=== PATIENT | female | born 1975 | race Caucasian/White ===

== ENCOUNTER 2019-03-22 13:55 | Inpatient (IN) | payer OTHER, SELFPAY ==
[2019-03-19 13:21] VITALS: BMI 48.7
[2019-03-22] VITALS (12 sets, daily range): BP systolic 127–166; BP diastolic 8–98; PULSE 18–110; RESP 10–18; TEMP 36.4–37.7; O2SAT 93–104; BMI 48.5
--- NOTE | 2019-03-22 | PATH_ITS ---
[facility] Accession Number: [id number] . 01 Material submitted: . uterine adnexa - BILATERAL FALLOPIAN TUBES AND OVARIES . 01 Diagnosis: Bilateral Fallopian Tubes and Ovaries, Bilateral Salpigoophorectomy: Fragmented ovary with corpus luteum,benign epithelial inclusion cyst and features of stromal hyperplasia; Please see Comment. Contralateral ovary with features of stromal hyperplasia. Portions of bilateral fimbriated fallopian tubes. Negative for epithelial neoplasm or malignany. [facility] [place] 03/30/2019 1827 Local . 01 Comment: The fragmented ovary contains a benign corpus luteum and an epithelial inclusiuon cyst; other fragments are denuded. Though no definitive cyst correlating to the size of the lesion is seen, the features are suggestive of a benign corpus luteum cyst. Additionally, each ovary has features suggestive of stromal hyperplasia, a finding of uncertain clinical significance. There is no evidence of epithelial neoplasm or malignancy. . As part of routine qulity assurance, Drs. Lira and Diane have reviewed this case and agrees with the above diagnosis. . 01 Electronically signed: . Christiano Braun MD, PhD, Pathologist NPI- [id number] . 01 Gross description: . Received in formalin, labeled bilateral tubes + ovaries, is an intact ovary (3.0 x 2.1 x 1.4 cm), multiple fragments of ovarian tissue (5.0 x 4.3 x 1.2 cm in aggregate), and multiple apparently fimbriated and nonfimbriated fallopian tube segments (3.3 x 1.8 x 0.6 cm in aggregate). The ovary and ovarian pieces have hearn-puentes dull flat serosa and puentes-white solid parenchyma with corpus albicans and corpus luteum identified. The fallopian tube segments have dull puentes serosa and puentes unremarkable lumens. Section code: (A1) intact ovary, ambulatory service representative serial sections; (A2) ovarian fragments, ambulatory service representative; (A3) fallopian tube segments, ambulatory service representative serial sections; (A4, A5) one bisected apparent fimbria in each cassette; (A6) additional sampling of intact ovary; (A7-A10) additional sampling of cystic ovary. ([id number]) . The gross specimen was reviewed by Dr. Braun on 03/29/2019, and additional material was submitted. ([id number]) /MRV 03/29/[address] [place] [address] . 01 Microscopic: . Sections from the fragmented ovary show a focus of corpus luteum and and a benign epithelial inclusion cyst. Other fragments are denuded of epithelium; definitive cyst wall is not appreciated. Sections from the fragmented ovary and the contralateral ovary have foci of stromal condensation suggestive of stromal hyperplasia. Adjacent there are few foci of histiocytic inflammation, which have been described in association with stromal hyperplasia. Sampling of bilateral fallopian tubes are unremarkable. There is no evidence of epithelial neoplasm or malignancy. . 01 Pathologist provided ICD-10: N83.209 . 01 CPT . 193762 Performed at: 01 [facility] [address] [place] [address] Suite [facility], [place], [place] [id number] MD Oumar Caruso MD Phone: [phone]
[2019-03-22] MEDS: LACTATED RINGERS 1,000 ML 100 ML IV ×3 (14:46→22:30)
--- NOTE | 2019-03-22 14:49 | PM.PREOP ---
Pre-operative Note Interval Note History & Physical reviewed/Exam performed by Physician: Yes Changes to H&P: No
--- NOTE | 2019-03-22 15:26 | SUR.OPER ---
Lithotomy on padded OR bed, head on pillow, arms secured on padded arm boards at <90 degrees abduction. Legs secured in padded yellow fins stirrups.
[2019-03-22] MEDS: BUPIVACAINE 0.5% W/ EPI (PF) VIAL 30 ML INJ (15:32)
[2019-03-22] MEDS: CLINDAMYCIN 900 MG/50 ML PIGGYBACK 50 MG IV (17:10)
--- NOTE | 2019-03-22 20:25 | PM.OP.1 ---
Operative Date/Time/Diagnoses Date of procedure: 03/22/19 Time of procedure: 20:25 Pre-op diagnosis: ovarian cysts Post-op diagnosis: same Procedure & Clinicians Procedure: Exploratory laparotomy Lysis of adhesions Repair of colonic serosal tear Same procedure as scheduled: No Indications: This is a 43-year-old woman who was taken to the operating room by Dr. Cheng for laparoscopy and bilateral oophorectomy. She had prior abdominal surgery dense adhesions and the procedure was converted to open prior to my arrival. I was asked to assist with the lysis of adhesions. Surgeon: Nahid Escobar Substation Electrician Supervisor: Jinny Cheng Anesthesia Type: General Operative Notes Findings: The patient had already been converted from laparoscopy to open via their prior Pfannenstiel incision. The colon and small bowel was densely adherent to the pelvis by adhesions and we were unable to adequately mobilize the intestine through the present incision. The midline was opened to the level of the umbilicus. The adhesions were carefully taken down with sharp dissection and at this point we could mobilize the intestinal contents such that we could visualize the right and left pelvis. A 1 cm serosal tear was identified on the anti mesenteric border of the sigmoid colon which was repaired in 2 layer Lembert fashion using Vicryl followed by silk. Please refer to the operative note by Dr. Cheng for for the remainder of the case.
[2019-03-22] MEDS: HYDROMORPHONE 2 MG INJ 0.5 MG IV ×2 (20:50→21:06)
[2019-03-22] MEDS: LORazepam 2 MG/ML INJ 0.5 MG IV (21:00)
[2019-03-22] MEDS: fentaNYL 100 MCG/2 ML INJ 50 MCG IV (21:10)
--- NOTE | 2019-03-22 21:47 | PM.OP.1 ---
Operative Date/Time/Diagnoses Date of procedure: 03/22/19 Time of procedure: 21:48 Pre-op diagnosis: Recurring ovarian cysts Post-op diagnosis: same Procedure & Clinicians Procedure: Laparoscopy with laparotomy, lysis of adhesions, bilateral oophorectomies Same procedure as scheduled: No (Unable to perform the procedureby laparoscopy so a laparotomy was required) Indications: Recurring painful ovarian cysts status post hysterectomy Surgeon: Jinny Cheng Strategic Marketing Associate: Hanh Villalobos Anesthesia Type: General Operative Notes Findings: Severe adhesions of the omentum, small bowel, large bowel to the anterior abdominal wall. Significant adhesions around the ovaries bilaterally. Status post hysterectomy. Closure Type: primary Specimen(s): other (Bilateral ovaries in portions of fallopian tubes) Estimated Blood Loss (mL): 100 Blood products transfused: none Procedure in detail: Patient was brought to the operating room where she underwent general anesthesia. She was placed in low Yellofin stirrups and prepped and draped in the usual sterile fashion. She had pulsatile stockings in place and functional. No antibiotics were indicated. A check system was reviewed with the staff in the room prior to beginning the case. A sponge stick was placed in the vagina. The area of the umbilical incision was injected with 0.5% Marcaine with epinephrine. An incision was made with the scalp on the incision carried down the fascial layer which was incised transversely and held with 0 Vicryl suture. The perineum was entered bluntly and the Hayley cannula was placed in the abdomen and the abdomen insufflated with CO2. A 5 mm trocar was placed in the left lower quadrant. Attempt at removing the adhesions with PlasmaKinetic scissors to allow visualization of the pelvis was unsuccessful. Decision was made to open the abdomen. A Pritchard catheter was placed. Patient received 900 mg of clindamycin IV. The area of the prior section was incised with a scalpel and the incision carried down to the fascial layer which was incised transversely. Careful entry into the perineum was performed. Extensive lysis of adhesions were performed. We continued to have significant difficulty so General surgery was consulted. Dr. Escobar assisted and decision was made to extend the incision cephalad. The incision was made in the skin above the umbilicus and extended down to the fascial layer. The fascia was incised. Further extensive lysis of adhesions was performed. An area of superficial tearing of the bowel serosa was repaired by Dr. Escobar. Eventually dissection revealed the right ovary. The area of the presumed infundibulopelvic ligament was clamped cut and ligated with 0 Vicryl suture. Dissection of the bowel away from the ovary and dissection over the ovary away from the broad ligament allowed eventual removal of the right ovary. Portion of the right tube was also removed. Next the left ovary was dissected away from the bowel and broad ligament allowing removal of the left ovary and partial fallopian tube were removed. There did not appear to be active bleeding. The abdomen was irrigated copiously with warm saline. The fascia of the Pfannenstiel incision was closed with 0 Vicryl suture starting and eight's corner and working toward the midline. 0 Maxon was used to close the vertical incision in the fascia. The subcuticular area was closed with multiple layers of 3 0 Vicryl suture. Skin was closed with barry. The umbilical fascial defect from the Painter cannula was repaired with 0 Vicryl suture and the skin was closed with 4 0 Monocryl. The left lower quadrant incision for the 5 mm trocar was closed with barry. Patient went to the recovery room in stable condition. Counts of instruments and sponges were correct. Complications: other (Need for laparotomy unable to perform by laparoscopy) Post-operative Condition: stable Disposition: Acute Care Plan for aftercare: Routine post laparotomy
--- NOTE | 2019-03-22 21:55 | SUR.PHASEI ---
Pacu to room 228. Update to YOGESH Roberts. CPAP with 2L 02 bled into mask. VSS, UOP 235, at BS during recovery. Transferred in stable condition.
[2019-03-22] MEDS: ONDANSETRON 4 MG/2 ML INJ IV (23:03)
[2019-03-22] MEDS: HYDROMORPHONE 2 MG INJ IV (23:29)
[2019-03-23] VITALS (13 sets, daily range): BP systolic 115–139; BP diastolic 59–90; PULSE 81–114; RESP 16–18; TEMP 36.4–37.7; O2SAT 96–100
[2019-03-23] MEDS: HYDROMORPHONE 2 MG INJ IV ×2 (01:11→04:58)
[2019-03-23] MEDS: ONDANSETRON 4 MG/2 ML INJ IV (05:04)
[2019-03-23 05:26] LABS: Add Manual Diff / Slide Review NO; Basophils Absolute Auto 0 /uL (0-100); Basophils Percent Auto 0.2 % (0-2); Eosinophils Absolute Auto 0 /uL (0-450); Hematocrit 39.6 % (36-46); Hemoglobin 12.9 g/dL (12.0-16.0); Lymphocytes Absolute Auto 1300 /uL (1100-4500); Lymphocytes Percent Auto 7.3 % (25-40); Mean Corpuscular HGB Conc 32.6 % (30-36); Mean Corpuscular Hemoglobin 29.3 PG (26-34); Mean Corpuscular Volume 89.8 fL (80-100); Monocytes Absolute Auto 1500 /uL (0-900); Monocytes Percent Auto 8.6 % (3-14); Neutrophils Absolute Auto 14900 /uL (1500-7000); Neutrophils Percent Auto 83.9 % (50-75); Platelet Count 409 X10^3/uL (150-400); Red Blood Cell Count 4.41 X10^6/uL (4.0-5.2); Red Cell Distribution Width 14.1 % (11.6-14.8); White Blood Cell Count 17.8 X10^3/uL (4.5-11.0)
[2019-03-23] MEDS: METOCLOPRAMIDE 10 MG/2 ML INJ IV ×2 (08:22→14:57)
[2019-03-23] MEDS: LACTATED RINGERS 1,000 ML 100 ML IV (08:22)
[2019-03-23] MEDS: ONDANSETRON 8 MG in SODIUM CHLORIDE 0.9% 50 ML 216 ML IV (10:09)
[2019-03-23] MEDS: fentaNYL 100 MCG/2 ML INJ 50 MCG IV ×3 (10:09→23:48)
--- NOTE | 2019-03-23 13:07 | PM.PNPO.1 ---
Subjective Subjective Date Patient Seen: 03/23/19 Time Patient Seen: 13:07 Interval history: Patient is postoperative day 1 laparotomy with extensive lysis of adhesions and BSO. She had a lot more nausea this morning but is improved with changing to higher doses Zofran and Reglan. She still is having some mild nausea. Patient continues to be in pain we changed her pain medicine and hopefully will have some improvement. Exam Vital Signs (past 8 hours): - 03/23/19 06:03 03/23/19 08:00 03/23/19 10:07 Temperature 99.1 F 98.4 F Pulse Rate 107 H 94 H Respiratory Rate 18 18 Blood Pressure 138/90 124/66 Pulse Oximetry 96 97 96 Oxygen Delivery Method Nasal Cannula Oxygen Flow Rate 2 Narrative Exam Narrative: Patient's abdomen is soft with minimal distention. Her dressing is dry. Extremities without edema and nontender. Objective Labs Result Diagrams: 03/23/19 04:50 Labs: Laboratory Results - last 24 hr 03/23/19 04:50 WBC 17.8 H RBC 4.41 Hgb 12.9 Hct 39.6 MCV 89.8 MCH 29.3 MCHC 32.6 RDW 14.1 Plt Count 409 H Neut % (Auto) 83.9 H Lymph % (Auto) 7.3 L [place] % (Auto) 8.6 Eos % (Auto) 0.0 L Baso % (Auto) 0.2 Neut # (Auto) 34484 H Lymph # (Auto) 1300 [place] # (Auto) 1500 H Eos # (Auto) 0 Baso # (Auto) 0 Assessment & Plan Post-op Assessment and plan (1) S/P BSO (bilateral salpingo-oophorectomy): Postoperative Procedures: Procedures Operation Date: 03/22/19 15:30 Actual Procedures Side Surgeon p Laparoscopic Salpingoophorectomy/converted to open Bilateral Jinny Cheng MD Postoperative day: 1 Postoperative status: marginal pain control Postoperative status narrative: Hopefully we can get patient up into a chair later today Postoperative plan: routine post-op care Time Spent With Patient Time with patient: less than 15 minutes Quality VTE Deep Vein Thrombosis/Pulmonary Embolism Present on Admission: No
[2019-03-23] MEDS: DEXTROSE 5%-LACTATED RINGERS 1,000 ML 100 ML IV (15:00)
[2019-03-23] MEDS: LITHIUM 300 MG ER TABLET 600 MG PO ×2 (15:49→21:51)
--- NOTE | 2019-03-23 15:51 | PC.NURSE ---
Post-op/GI: SI might be a little better now. Emesis 250mls, retching. Order received for reglan and given. Still feeling nausea, md made aware and increased zofran and that was given. Pt thinks the dilaudid may be causing her n/v and md made aware and order received for fentynal. Pt reports the fentynal is working better for her. Finally this afternoon she is taking sips of clear liquids. Has not taken her meds today and Dr. Cheng was made aware. Pt reports she is to sick to her stomach to get out of bed, has been positioned as able. Has large bulky dressing on abd which is c/d. Spouse is at bedside most of day and helps her to eat. Hopefully will start to feel better. has been here twice to see pt. Cont w/poc.
--- NOTE | 2019-03-23 21:58 | PC.NURSE ---
Pt is A and O x 4, VSS, now on RA. Able to tolerate po meds and jello and juice and water. Able to sleep. Gets good relief from IVP fentanyl 50 mcg.
[2019-03-23] MEDS: ACETAMINOPHEN 325 MG TABLET 650 MG PO (22:12)
[2019-03-24] VITALS (8 sets, daily range): BP systolic 109–126; BP diastolic 52–72; PULSE 70–103; RESP 16–20; TEMP 36.8–37.6; O2SAT 95–99
[2019-03-24] MEDS: DEXTROSE 5%-LACTATED RINGERS 1,000 ML 100 ML IV (01:07)
--- NOTE | 2019-03-24 04:15 | PC.NURSE ---
Pt refusing to be turned because it causes her pain. Educated on purpose of turns and risk vs benefit, pt acknowledged.
[2019-03-24 05:26] LABS: Add Manual Diff / Slide Review NO; Basophils Absolute Auto 100 /uL (0-100); Basophils Percent Auto 0.8 % (0-2); Eosinophils Absolute Auto 0 /uL (0-450); Eosinophils Percent Auto 0.1 % (2-4); Hematocrit 32.3 % (36-46); Hemoglobin 10.6 g/dL (12.0-16.0); Lymphocytes Absolute Auto 2200 /uL (1100-4500); Lymphocytes Percent Auto 16.6 % (25-40); Mean Corpuscular HGB Conc 32.8 % (30-36); Mean Corpuscular Hemoglobin 29.6 PG (26-34); Mean Corpuscular Volume 90.1 fL (80-100); Monocytes Absolute Auto 1200 /uL (0-900); Monocytes Percent Auto 9.1 % (3-14); Neutrophils Absolute Auto 9600 /uL (1500-7000); Neutrophils Percent Auto 73.4 % (50-75); Platelet Count 331 X10^3/uL (150-400); Red Blood Cell Count 3.58 X10^6/uL (4.0-5.2); Red Cell Distribution Width 14.2 % (11.6-14.8); White Blood Cell Count 13.1 X10^3/uL (4.5-11.0)
[2019-03-24 05:39] LABS: Alanine Aminotransferase 20 IU/L (9-52); Albumin 3.3 g/dL (3.5-5.0); Albumin Globulin Ratio 1.1 (1.0-2.8); Alkaline Phosphatase 71 U/L (38-126); Aspartate Aminotransferase 41 IU/L (14-36); Bilirubin Total 0.6 mg/dL (0.2-1.3); Blood Urea Nitrogen 7 mg/dL (7-17); Carbon Dioxide 30 mmol/L (22-32); Chloride 103 mmol/L (98-107); Estimated Glomerular Filt Rate > 60.0 mL/min (>60); Glucose 148 mg/dL (70-100); HEMOLYSIS < 15 (0-50); Sodium 138 mmol/L (137-145); Total Protein 6.3 g/dL (6.3-8.2)
[2019-03-24] MEDS: ACETAMINOPHEN 325 MG TABLET 650 MG PO ×2 (09:46→23:58)
[2019-03-24] MEDS: NADOLOL 40 MG TABLET 20 MG PO (09:47)
[2019-03-24] MEDS: lamoTRIgine 100 MG TABLET 250 MG PO (09:48)
--- NOTE | 2019-03-24 10:46 | P.PN_ITS ---
Subjective Subjective Date Patient Seen: 03/24/19 Time Patient Seen: 10:46 Interval history: Postoperative day 2. Patient is having less nausea, is able to keep pills down. She has not try to get out of bed yet. She complains of gas pains. Exam Vital Signs (past 8 hours): - 03/24/19 03:05 03/24/19 06:46 03/24/19 08:00 Temperature 99.7 F H 98.7 F 99.1 F Pulse Rate 103 H 96 H Respiratory Rate 17 18 Blood Pressure 109/52 L 126/70 Pulse Oximetry 95 98 03/24/19 09:46 Temperature 99.1 F Pulse Rate Respiratory Rate Blood Pressure Pulse Oximetry Oxygen Delivery Method Room Air,CPAP Oxygen Flow Rate 0 Narrative Exam Narrative: Patient's abdomen is soft with appropriate tenderness. Her incision is clean dry and intact with ecchymosis but no evidence of infection. Extremities with out edema and nontender Objective Labs Result Diagrams: 03/24/19 05:02 03/24/19 05:02 Labs: Laboratory Results - last 24 hr 03/24/19 03/24/19 05:02 05:02 WBC 13.1 H RBC 3.58 L Hgb 10.6 L Hct 32.3 L MCV 90.1 MCH 29.6 MCHC 32.8 RDW 14.2 Plt Count 331 Neut % (Auto) 73.4 Lymph % (Auto) 16.6 L Randall % (Auto) 9.1 Eos % (Auto) 0.1 L Baso % (Auto) 0.8 Neut # (Auto) 9600 H Lymph # (Auto) 2200 Randall # (Auto) 1200 H Eos # (Auto) 0 Baso # (Auto) 100 Sodium 138 Potassium 4.0 Chloride 103 Carbon Dioxide 30 BUN 7 Creatinine 0.50 L Estimated GFR > 60.0 BUN/Creatinine Ratio 14.0 Glucose 148 H Calcium 9.0 Total Bilirubin 0.6 AST 41 H ALT 20 Alkaline Phosphatase 71 Total Protein 6.3 Albumin 3.3 L Globulin 3.0 Albumin/Globulin Ratio 1.1 Assessment & Plan Post-op Assessment and plan (1) S/P BSO (bilateral salpingo-oophorectomy): (2) Morbid obesity with BMI of 45.0-49.9, adult: Postoperative Procedures: Procedures Operation Date: 03/22/19 15:30 Actual Procedures Side Surgeon p Laparoscopic Salpingoophorectomy/converted to open Bilateral Jinny Cheng MD Postoperative day: 2 Postoperative status: post-op ileus Postoperative plan: ambulate Postoperative plan narrative: Will start Lovenox for additional DVT protection, will see if abdominal binder will help with ambulation. Will have physical therapy consult to aid patient in ambulation. May DC IV if tolerating p.o.. Time Spent With Patient Time with patient: 15-24 minutes Quality VTE Deep Vein Thrombosis/Pulmonary Embolism Present on Admission: No
[2019-03-24] MEDS: DEXTROSE 5%-LACTATED RINGERS 1,000 ML 84 ML IV ×2 (12:04→23:43)
--- NOTE | 2019-03-24 14:35 | PC.NURSE ---
1300 Pt oob mw/assist of 2 people/walker. applied the abd binder w/o diff. Pt moves very slowly, does not want the harris cath out yet. Is agreeable when samuel to move easier. jIV fluids cont. May dc fluids when taking in adeqPO mfluids w/o n/v. Pt oconnell a poor po intake at this time. mno nausea/emesis. Encouraged increase of intake. Dr Cheng removed the ,drswhitney this AM, leave open to air. [place] intact.
--- NOTE | 2019-03-24 14:57 | CM.DANOTE ---
DCP Brief Assessment Note Patient is a 43 year old female who was admitted on 03/22/19 for Lap. Pt has [employer] for insurance and her PCP is Dr. Rebecca Castillo. EMR was reviewed. Per MD, pt was initially set for a Lap but it ended up needing to be open and pt initially on oxygen but weaned to room air. Pt continues to have some nausea and pain but has had some improvement and encouraged to get up to ambulate some to bedside chair. Per RN, pt has been hesitant to move or adjust her positioning and educated on the purpose and need for movement. PT ordered and pending. Due to triage needs and lack of current identified barriers to discharge, no bedside assessment completed at this time. Plan: SW to follow closely for pending PT eval and recommendations to determine if pt can safely d/c home and any further identified discharge planning needs. FRANKY Holbrook
[2019-03-24] MEDS: OXYCODONE IR 10 MG TABLET PO ×2 (15:42→20:46)
[2019-03-24] MEDS: ENOXAPARIN 40 MG/0.4 ML SYRINGE SUBCUT (20:45)
--- NOTE | 2019-03-24 21:13 | PC.NURSE ---
Pt denied N today, ate very little. Intensive pain when she had to have a BM which she managed, on the toilet from the chair with FWW. BM small and loose. Changed out patient's bed to Ver[place] and she states she is much more comfortable.
[2019-03-24] MEDS: LITHIUM 300 MG ER TABLET 600 MG PO (21:21)
[2019-03-25 06:01] VITALS: BP 128/69; PULSE 79; RESP 17; TEMP 36.5; O2SAT 94
[2019-03-25 08:00] VITALS: BP 129/72; PULSE 72; RESP 18; TEMP 36.5; O2SAT 96
[2019-03-25] MEDS: FLUoxetine 20 MG CAPSULE 30 MG PO (08:37)
[2019-03-25] MEDS: ACETAMINOPHEN 325 MG TABLET 650 MG PO (08:37)
[2019-03-25] MEDS: ENOXAPARIN 40 MG/0.4 ML SYRINGE SUBCUT ×2 (08:37→20:41)
[2019-03-25] MEDS: OXYCODONE IR 10 MG TABLET PO ×2 (08:38→17:52)
[2019-03-25] MEDS: LITHIUM 300 MG ER TABLET 600 MG PO ×2 (08:39→20:41)
[2019-03-25] MEDS: lamoTRIgine 100 MG TABLET 250 MG PO (08:39)
[2019-03-25] MEDS: NADOLOL 40 MG TABLET 20 MG PO (08:39)
--- NOTE | 2019-03-25 09:41 | PM.PNPO.1 ---
Subjective Subjective Date Patient Seen: 03/25/19 Time Patient Seen: 09:41 Interval history: Postoperative day 3 laparotomy with extensive lysis of adhesions and BSO. Patient is feeling better with no nausea and had a small bowel movement. She is slow but able to get out of bed. Pritchard catheter has been removed. Patient is using minimal amounts of pain medicine. She has an area in the right lower quadrant that is her major source of pain. She did have a headache but not a migraine she feels the headaches are from the pain medicine. She denies any chest pains or shortness of breath. Exam Vital Signs (past 8 hours): - 03/25/19 06:01 Temperature 97.7 F Pulse Rate 79 Respiratory Rate 17 Blood Pressure 128/69 Pulse Oximetry 94 Oxygen Delivery Method Room Air,CPAP Oxygen Flow Rate 0 Narrative Exam Narrative: Patient's abdomen is currently covered by her abdominal binder about half way over her incision. Her incision otherwise looks clean, dry, intact without evidence of infection. Her extremities are without edema and nontender. Objective Labs Result Diagrams: 03/24/19 05:02 03/24/19 05:02 Assessment & Plan Post-op Assessment and plan (1) Morbid obesity with BMI of 45.0-49.9, adult: (2) S/P BSO (bilateral salpingo-oophorectomy): Postoperative Procedures: Procedures Operation Date: 03/22/19 15:30 Actual Procedures Side Surgeon p Laparoscopic Salpingoophorectomy/converted to open Bilateral Jinny Cheng MD Postoperative day: 3 Postoperative status: doing well Postoperative plan: routine post-op care Postoperative plan narrative: Will advanced diet today and continue ambulation. Possible home tomorrow if continued to improve. Time Spent With Patient Time with patient: less than 15 minutes Quality VTE Deep Vein Thrombosis/Pulmonary Embolism Present on Admission: No
--- NOTE | 2019-03-25 10:25 | PT.IIE ---
Current Diagnoses Morbid (severe) obesity due to excess calories (03/22/19) Unspecified ovarian cyst, unspecified side (03/22/19) Pelvic and perineal pain (03/22/19) Body mass index (BMI) 45.0-49.9, adult (03/22/19) Acquired absence of ovaries, bilateral (03/22/19) Surgery Performed Operation Date: 03/22/19 15:30 Actual Procedures p Laparoscopic Salpingoophorectomy/converted to open(Bilateral) - Jinny Cheng MD Surgical History (Last Updated 03/19/19 @ 13:26 by Frida Marie, [email or web address]) H/O: hysterectomy (Acute) Medical History (Last Updated 03/19/19 @ 13:29 by Frida Marie RN) Bipolar disorder (Acute) Vertigo (Acute) Physical Therapy Inpatient Evaluation/Re-Eval M1 PT/OT-IP Prior Functional Status Start: 03/25/19 08:27 Freq: NEEDED Status: Active Protocol: Document 03/25/19 09:54 AW (Rec: 03/25/19 10:24 AW [email or web address]) Medical Review Prior Functional Status Medical History Reviewed Yes Diet/Fluid Consistency Regular Communication No known deficits. Able to make needs known. Mobility and Gait Pt has history of multiple spinal pathologies. She was mod independent for household mobility using no AD ~50% of the time and a SPC the rest of the time. She reports she would occasionally use a 4WW in the home if she was having a pain day related to her back pain. She was ambulatory for parking lot distances using her SPC. She would then use a motorized cart for grocery store distances. Activities of Daily Living and IADL's Pt received assistance from her and her 17-yo son for lower body dressing. She was otherwise independent with ADL's. Social History Household Members spouse,children Living Arrangements House Number of Floors (Floors) One Floor Number of Stairs To Enter/Railing? 5 [id number] with narrow bilateral rails which can be contacted at the same time. Home Environment High Toilet,Walk in Shower, Built-In Shower Seat Home Equipment Four Wheel Walker,Straight Cane,Hand Held Shower Additional Social History Comment Pt lives with her spouse who is an industrial electrician working at the [employer] in [place] and her children (oldest is 17 yo) . Her will take off a few days when she discharges in order to provide assistance . He is leaving for a trip within 2 weeks. At that time, pt's mother will stay with her as long as needed. M2 PT-IP Current Condition Start: 03/25/19 08:27 Freq: NEEDED Status: Active Protocol: Document 03/25/19 09:54 AW (Rec: 03/25/19 10:24 AW [email or web address]) Physical Therapy Current Condition Current Condition Evaluation Date 03/25/19 Treatment Diagnosis s/p open abdominal surgery, impaired mobility Precautions Abdominal Surgery Precautions Log Roll,Lifting Restrictions, Gait Belt above Incisional Area Brace abdominal binder Weight Bearing Status Weight Bearing Status Full Weight Bearing M3 PT-IP Subjective Start: 03/25/19 08:27 Freq: NEEDED Status: Active Protocol: Document 03/25/19 09:54 AW (Rec: 03/25/19 10:24 AW [email or web address]) Subjective Physical Therapy Visit Type Type Initial Evaluation Visit Start Time 09:08 Visit Stop Time 09:48 Total Visit Minutes [address] CUTTER Visits 0 Physical Therapy Visit Comments Patient Comments Pt recently transferred to chair, but is willing to mobilize with PT Patient Goals Pt hopes to get in and out of bed with less pain and to discharge home tomorrow with spouse/family assist Therapy Pain Assessment Pain When Pain Assessed During Mobility Pain Present Pain Present Pain Reported Location abd Intensity 3 Scale Used 3/10 RLQ pain at rest and with mobility Description Pinching,Sharp Pain Management Techniques Apply Cold,Re-positioning, Timing of Activity with Medications M4 PT-IP Mobility and Gait Start: 03/25/19 08:27 Freq: NEEDED Status: Active Protocol: Document 03/25/19 09:54 AW (Rec: 03/25/19 10:24 AW [email or web address]) PT-Bed Mobility Assessment Rolling Type of Rolling Log Rolling Level of Assist Contact Guard Assistance, Minimal Assistance Sit to Supine Sit to Supine Contact Guard Assistance Scooting Scooting Up and Down in Bed Standby Assistance PT-Transfer Assessment Sit to and From Stand Sit to and from Stand Contact Guard Assistance Equipment Transfer Assistive Device Gait Belt,Front Wheeled Walker Orthotic/Prosthetic Devices or Brace: Yes Transfers Transfer Destination Bed,Chair Transfer Technique pt ambulated with fww Transfer Ability Level of Assist Contact Guard Assistance Comments Mobility Comments Pt encountered sitting up in chair. Sit to stand transfer required CGA and cues for hand placement with FWW. She was able to stand upright and found that position more tolerable than sitting. Transfer from standing to EOB was completed CGA. Log roll into bed required CGA to min assist to elevate the legs and minimal verbal cues. Pt left in bed with bed alarm armed, table and call light within reach. Gait Assessment Gait Gait Assistance Required: Contact Guard Assist Distance (Feet) 30 Able to Maintain Weight Bearing Status Yes During Gait Assistive Devices Assistive Device Gait Belt,Front Wheeled Walker Orthotic/Prosthetic Devices or Brace: Yes Gait Deviations General Gait Pattern Antalgic,Decreased Stride Length,Decreased Feet Clearance,Wide Based Gait Factors Limiting Gait Function Factors Limiting Gait Function Decreased Activity Tolerance, Decreased Strength,Pain Comments Gait Comments Pt ambulated ~30 feet in room using wide FWW CGA. She required extra time, moved very slowly and deliberately, pausing every 10 feet for standing rest break and to stretch her abdominal wall. No respiratory distress, lightheadedness, or nausea. BP maintained 120's/70's. PT-Balance Assessment Sitting Balance and Reactions Static Sitting Balance Ability Good Dynamic Sitting Balance Ability Good Standing Balance and Reactions Static Standing Balance Ability Good Dynamic Standing Balance Ability Good Device Used FWW M5 PT-IP Objective Assessments Start: 03/25/19 08:27 Freq: NEEDED Status: Active Protocol: Document 03/25/19 09:54 AW (Rec: 03/25/19 10:24 AW [email or web address]) Orientation Orientation/Cognition Level of Alertness Alert Orientation Name,Day of Week,Place, Situation Language Function Ability No Deficits Noted Safety Awareness Understands Safety Issues Memory Description No Deficits Noted Gross Range of Motion Upper Extremity ROM Assessment Within Functional Limits Lower Extremity ROM Assessment Bilaterally Impaired Strength Upper Extremity Strength Assessment Within Functional Limits Lower Extremity Strength Assessment Right Impaired Hip 3/5 in sitting (no resistive testing) Knee 4/5 Ankle 4/5 Comments Strength Comments RLE weaker than LLE. LLE grossly 4+/5 except for hip flexion 3/5 (no resistive testing) Coordination Assessment Gross Coordination Gross Coordination WNL Sensation Assessment Sensation Gross Sensation WNL Light Touch Intact M6 PT-IP Treatment Start: 03/25/19 08:27 Freq: NEEDED Status: Active Protocol: Document 03/25/19 09:54 AW (Rec: 03/25/19 10:24 AW [email or web address]) Physical Therapy Treatment Education Education Provided Precautions,Weight Bearing Status,Post-Op Packet,Safety Other Treatments Other Treatment Performed Reviewed PT plan of care, post -op precautions, importance of early and continued mobility, and safe use of FWW. M7 PT-IP Assessment and Plan Start: 03/25/19 08:27 Freq: NEEDED Status: Active Protocol: Document 03/25/19 09:54 AW (Rec: 03/25/19 10:24 AW [email or web address]) PT Summary Assessment and Plan Potential Rehabilitation Potential Good Status of Condition at Evaluation Evolving Summary Impairments Pain,Strength,Bed Mobility, Transfers,Gait,Activity Tolerance Assessment Summary Pt is a 43 yo woman with chronic back pain seen on POD1 following planned laparoscopic oophorectomy which converted to open lysis of adhesions. PLOF: Pt required use of SPC and 4WW for household and parking lot community distances. She relied on motorized carts for shopping. She also required assistance from her spouse and son for lower body dressing. CLOF: Pt presents with decreased activity tolerance, decreased strength, and pain limiting her mobility. She required CGA to min assist for all mobility but was hemodynamically stable with no increased pain during mobility. If she meets functional goals of this plan of care, she will be safe to discharge home with family assist. Goals Bed Mobility Goal Standby Assistance Transfer Goal Standby Assistance Gait Goal Standby Assistance Gait Distance 100 Other Goals up/down 5 steps using bilateral rails Days to Meet Goals 2 Frequency of Treatment Frequency Of Treatment Once a Day Treatment Plan Physical Therapy Treatment Plan Bed Mobility Training,Transfer Training,Gait Training, Therapeutic Exercise,Balance Retraining,Post Op Education, Discharge Planning,Hot or Cold Pack,Neuromuscular Re-ed, Manual Therapy Other Recommendations and Next Treatment progress gait; stair training; Focus reinforce log roll Recommendations To Nursing Amount of Assist Needed 1 Person Assist Discharge Recommendations PT Discharge Recommendations Home with Assistance Other Discharge Recommendations must successfully complete stair training
[2019-03-25 12:00] VITALS: BP 127/65; PULSE 63; RESP 16; TEMP 36.8; O2SAT 96
[2019-03-25 15:33] VITALS: BP 117/67; PULSE 69; RESP 18; TEMP 36.4; O2SAT 100
[2019-03-25 20:25] VITALS: BP 120/58; PULSE 77; RESP 20; TEMP 36.3; O2SAT 99
[2019-03-25] MEDS: ONDANSETRON 4 MG ODT SL (21:40)
[2019-03-25] MEDS: fentaNYL 100 MCG/2 ML INJ 50 MCG IV (21:47)
[2019-03-26 00:26] VITALS: BP 110/59; PULSE 78; RESP 18; TEMP 37.1; O2SAT 99
[2019-03-26] MEDS: SODIUM CHLORIDE 0.9% FLUSH 10 ML IV ×3 (02:37→20:50)
[2019-03-26] MEDS: ACETAMINOPHEN 325 MG TABLET 650 MG PO ×2 (02:38→08:56)
[2019-03-26] MEDS: OXYCODONE IR 10 MG TABLET PO ×5 (02:38→20:51)
[2019-03-26 05:37] VITALS: BP 132/68; PULSE 69; RESP 16; TEMP 36.9; O2SAT 96
--- NOTE | 2019-03-26 06:46 | PC.NURSE ---
Pt VSS. Reported pain at RLQ, pain medication given x 1. Denies nausea. Surgical site with well approximated wound edges, barry intact. No s/s infection at wound site, no redness, heat, drainage. Surgical wound open to air. Abd binder in place. Pt wears CPAP at night. Compliant with SCDs. Anticipate possible discharge late today.
[2019-03-26] MEDS: ENOXAPARIN 40 MG/0.4 ML SYRINGE SUBCUT ×2 (08:50→20:50)
[2019-03-26] MEDS: FLUoxetine 20 MG CAPSULE 30 MG PO (08:51)
[2019-03-26] MEDS: lamoTRIgine 100 MG TABLET 250 MG PO (08:52)
[2019-03-26] MEDS: LITHIUM 300 MG ER TABLET 600 MG PO ×2 (08:53→20:50)
[2019-03-26 08:54] VITALS: BP 122/66; PULSE 75; RESP 17; TEMP 36.9; O2SAT 100
[2019-03-26] MEDS: NADOLOL 40 MG TABLET 20 MG PO (08:54)
[2019-03-26 11:38] VITALS: BP 130/60; PULSE 76; RESP 17; TEMP 37.2; O2SAT 100
[2019-03-26 15:35] VITALS: BP 122/63; PULSE 67; RESP 18; TEMP 36.5; O2SAT 100
--- NOTE | 2019-03-26 16:12 | PT.IPTN ---
Current Diagnoses Morbid (severe) obesity due to excess calories (03/22/19) Unspecified ovarian cyst, unspecified side (03/22/19) Pelvic and perineal pain (03/22/19) Body mass index (BMI) 45.0-49.9, adult (03/22/19) Acquired absence of ovaries, bilateral (03/22/19) Surgery Performed Operation Date: 03/22/19 15:30 Actual Procedures p Laparoscopic Salpingoophorectomy/converted to open(Bilateral) - Jinny Cheng MD Physical Therapy Treatment Note M2 PT-IP Current Condition Start: 03/25/19 08:27 Freq: NEEDED Status: Active Protocol: Document 03/25/19 09:54 AW (Rec: 03/25/19 10:24 AW [email or web address]) Physical Therapy Current Condition Current Condition Evaluation Date 03/25/19 Treatment Diagnosis s/p open abdominal surgery, impaired mobility Precautions Abdominal Surgery Precautions Log Roll,Lifting Restrictions, Gait Belt above Incisional Area Brace abdominal binder Weight Bearing Status Weight Bearing Status Full Weight Bearing M3 PT-IP Subjective Start: 03/25/19 08:27 Freq: NEEDED Status: Active Protocol: Document 03/26/19 15:47 CLB (Rec: 03/26/19 16:27 CLB [email or web address]) Subjective Physical Therapy Visit Type Type Treatment Note Visit Start Time 15:47 Visit Stop Time 15:12 Total Visit Minutes 25 Number of HUB BANDER Visits 1 Physical Therapy Visit Comments Patient Comments Pt willing to trail stairs in hopes of going home this afternoon. Therapy Pain Assessment Pain When Pain Assessed During Mobility Pain Present Pain Present Pain Reported M4 PT-IP Mobility and Gait Start: 03/25/19 08:27 Freq: NEEDED Status: Active Protocol: Document 03/26/19 15:47 CLB (Rec: 03/26/19 16:27 CLB [email or web address]) PT-Transfer Assessment Sit to and From Stand Sit to and from Stand Contact Guard Assistance Equipment Transfer Assistive Device Gait Belt,Front Wheeled Walker Orthotic/Prosthetic Devices or Brace: Yes Transfers Transfer Destination Chair,Wheelchair Transfer Ability Level of Assist Contact Guard Assistance Gait Assessment Gait Gait Assistance Required: Contact Guard Assist Distance (Feet) 100 Able to Maintain Weight Bearing Status Yes During Gait Assistive Devices Assistive Device Gait Belt,Front Wheeled Walker Orthotic/Prosthetic Devices or Brace: Yes Gait Deviations General Gait Pattern Antalgic,Decreased Stride Length,Decreased Feet Clearance,Wide Based Gait Factors Limiting Gait Function Factors Limiting Gait Function Decreased Activity Tolerance, Decreased Strength,Pain Stair Climbing Assessment Evaluation Level of Assist On Stairs Standby Assistance,1 Person Assistance Devices Stair Climbing Assistive Devices Left Railing,Right Railing Technique/Endurance Stair Climbing Direction Ascend and Descend Stair Climbing Technique Step to Step Number of Steps Climbed 3 Stair Climbing Set # Repetitions (reps) 2 M5 PT-IP Objective Assessments Start: 03/25/19 08:27 Freq: NEEDED Status: Active Protocol: Document 03/25/19 09:54 AW (Rec: 03/25/19 10:24 AW [email or web address]) Orientation Orientation/Cognition Level of Alertness Alert Orientation Name,Day of Week,Place, Situation Language Function Ability No Deficits Noted Safety Awareness Understands Safety Issues Memory Description No Deficits Noted Gross Range of Motion Upper Extremity ROM Assessment Within Functional Limits Lower Extremity ROM Assessment Bilaterally Impaired Strength Upper Extremity Strength Assessment Within Functional Limits Lower Extremity Strength Assessment Right Impaired Hip 3/5 in sitting (no resistive testing) Knee 4/5 Ankle 4/5 Comments Strength Comments RLE weaker than LLE. LLE grossly 4+/5 except for hip flexion 3/5 (no resistive testing) Coordination Assessment Gross Coordination Gross Coordination WNL Sensation Assessment Sensation Gross Sensation WNL Light Touch Intact M6 PT-IP Treatment Start: 03/25/19 08:27 Freq: NEEDED Status: Active Protocol: Document 03/25/19 09:54 AW (Rec: 03/25/19 10:24 AW [email or web address]) Physical Therapy Treatment Education Education Provided Precautions,Weight Bearing Status,Post-Op Packet,Safety Other Treatments Other Treatment Performed Reviewed PT plan of care, post -op precautions, importance of early and continued mobility, and safe use of FWW. M7 PT-IP Assessment and Plan Start: 03/25/19 08:27 Freq: NEEDED Status: Active Protocol: Document 03/26/19 15:47 CLB (Rec: 03/26/19 16:27 CLB [email or web address]) PT Summary Assessment and Plan Summary Impairments Pain,Strength,Bed Mobility, Transfers,Gait,Activity Tolerance Assessment Summary Pt improved with all mobility and was able to climb stairs with 's assisting with SBA. Pt increased ambulation to ~100ft with slow step through gait pattern but is steady with gait and has good safety awareness. Pt is able to d/c when medically stable. Goals Bed Mobility Goal Standby Assistance Transfer Goal Standby Assistance Gait Goal Standby Assistance Gait Distance 100 Other Goals up/down 5 steps using bilateral rails Days to Meet Goals 2 Frequency of Treatment Frequency Of Treatment Once a Day Treatment Plan Physical Therapy Treatment Plan Bed Mobility Training,Transfer Training,Gait Training, Therapeutic Exercise,Balance Retraining,Post Op Education, Discharge Planning,Hot or Cold Pack,Neuromuscular Re-ed, Manual Therapy Recommendations To Nursing Amount of Assist Needed 1 Person Assist Discharge Recommendations PT Discharge Recommendations Home with Assistance
--- NOTE | 2019-03-26 16:26 | PM.PNPO.1 ---
Subjective Subjective Date Patient Seen: 03/26/19 Time Patient Seen: 11:30 Interval history: Patient was ambulating in the hallway. She states she had another bowel movement last night. She continues to have significant right lower quadrant pain. She is unsure she can go up the 5 stairs into her house if she goes home today. Exam Vital Signs (past 8 hours): - 03/26/19 08:54 03/26/19 11:38 03/26/19 15:35 Temperature 98.4 F 99 F 97.7 F Pulse Rate 75 76 67 Respiratory Rate 17 17 18 Blood Pressure 122/66 130/60 122/63 Pulse Oximetry 100 100 100 Oxygen Delivery Method Room Air Oxygen Flow Rate 0 Narrative Exam Narrative: Patient's abdomen is soft with appropriate tenderness. Her incision is clean, dry, intact without evidence of infection. Extremities without edema and nontender. Objective Labs Result Diagrams: 03/24/19 05:02 03/24/19 05:02 Assessment & Plan Post-op Postoperative Procedures: Procedures Operation Date: 03/22/19 15:30 Actual Procedures Side Surgeon p Laparoscopic Salpingoophorectomy/converted to open Bilateral Jinny Cheng MD Postoperative day: 4 Postoperative status: marginal pain control Postoperative plan: routine post-op care Postoperative plan narrative: Continue to increase ambulation Time Spent With Patient Time with patient: less than 15 minutes Quality VTE Deep Vein Thrombosis/Pulmonary Embolism Present on Admission: No
[2019-03-26 20:00] VITALS: BP 123/67; PULSE 75; RESP 16; TEMP 36.7; O2SAT 95
[2019-03-27 00:20] VITALS: BP 119/69; PULSE 71; RESP 18; TEMP 36.8; O2SAT 95
[2019-03-27] MEDS: ACETAMINOPHEN 325 MG TABLET 650 MG PO ×2 (00:23→08:40)
[2019-03-27 05:20] VITALS: BP 151/79; PULSE 81; RESP 16; TEMP 36.7; O2SAT 98
[2019-03-27 08:05] VITALS: BP 107/69; PULSE 69; RESP 17; TEMP 36.6; O2SAT 99
--- NOTE | 2019-03-27 08:18 | P.DS_ITS ---
History of Present Illness History of Present Illness Date Patient Seen: 03/27/19 Time Patient Seen: 08:18 Chief complaint: [id number] Narrative: Patient underwent a laparoscopy, laparotomy with extensive lysis of adhesions and BSO for recurring ovarian cysts in severe right lower quadrant pain on 03/22/2019. She is now ambulatory, tolerating oral pain medicine, posit moira bowel movements. Her recovery complicated by her BMI of 48. Discharge Providers Provider Date of admission: 03/22/19 13:55 Discharge Date: 03/27/19 Primary care physician: Rebecca Castillo PA-C Consults: 03/22/19 17:55 Consult to Respiratory Therapy Evaluate & Treat Comment: Physician Instructions: Evaluate and treat 03/24/19 10:19 Consult to Physical Therapy Evaluate & Treat Comment: Physician Instructions: Evaluate and Treat Discharge provider: Jinny Cheng MD Summary Hospital Course Discharge Diagnosis: Laparoscopy with conversion to laparotomy, extensive lysis of adhesions and BSO, morbid obesity, sleep apnea Hospital Course: After laparotomy the patient had difficulty with pain control and nausea. Due to her BMI of 48 it took some time before she was ambulatory. She is now ambulatory, with bowel movements and tolerating a regular diet. Status at Discharge Cognitive/behavioral status at discharge: oriented Functional status at discharge: uses cane/walker Overall status at discharge: patient is progressing back to baseline Time Spent with Patient Time spent: Less than 30 minutes Exam Vital Signs (past 8 hours): - 03/27/19 00:20 03/27/19 05:20 03/27/19 08:05 Temperature 98.2 F 98.1 F 98 F Pulse Rate 71 81 69 Respiratory Rate 18 16 17 Blood Pressure 119/69 151/79 H 107/69 Pulse Oximetry 95 98 99 Oxygen Delivery Method Room Air Oxygen Flow Rate 0 Narrative Exam Narrative: Patient abdomen is soft, appropriately tender. Her incision shows ecchymosis but no evidence of infection. Extremities without edema and nontender. Objective Labs Result Diagrams: 03/24/19 05:02 03/24/19 05:02 Discharge Plan Discharge Med Rec/Prescriptions Prescriptions: New oxycodone 10 mg Tablet 10 mg PO Q3HR PRN (Reason: Pain, Severe (7-10)) Qty: 30 RF: 0 Continued lamotrigine [Lamictal] 200 MG tablet 250 mg PO QDAY Qty: 0 RF: 0 clonazepam 0.125 MG tablet,disintegrating 0.125 mg PO DIRECTED Qty: 0 RF: 0 fluoxetine 20 mg capsule 30 mg PO QDAY Qty: 0 RF: 0 nadolol 20 mg tablet 20 mg PO DAILY Qty: 60 RF: 2 estradiol 2 mg tablet 2 mg PO DAILY Qty: 30 RF: 11 oxycodone-acetaminophen [Percocet] 5-325 mg tablet 2 tab PO Q4-6H PRN (Reason: pain) Qty: 30 RF: 0 lithium carbonate 300 mg tablet extended release 600 mg PO BID RF: 0 sumatriptan succinate 100 mg tablet See Rx Instructions PO .COMPLEX Qty: 10 RF: 2 Follow up/Referrals: Jinny Cheng MD [Physician] - 04/04/19 (Postoperative exam) Rebecca Castillo PA-C [Primary Care Provider] - Discharge Orders: Discharge (Order); Ordered 03/27/19 Ordered By: Jinny Cheng Provider Discharge Instructions Diet: Regular Activity: Do not lift over 20 lb Skin/Wound/Dressing Care Report to your healthcare provider any signs of infection, such as:: chills, fever, night sweats, unusual drainage and unusual redness Discharge Data Primary Care Provider: Rebecca Castillo VTE Deep Vein Thrombosis/Pulmonary Embolism Present on Admission: No
[2019-03-27] MEDS: FLUoxetine 20 MG CAPSULE 30 MG PO (08:40)
[2019-03-27] MEDS: ENOXAPARIN 40 MG/0.4 ML SYRINGE SUBCUT (08:40)
[2019-03-27] MEDS: NADOLOL 40 MG TABLET 20 MG PO (08:41)
[2019-03-27] MEDS: LITHIUM 300 MG ER TABLET 600 MG PO (08:41)
[2019-03-27] MEDS: OXYCODONE IR 10 MG TABLET PO (08:42)
[2019-03-27] MEDS: lamoTRIgine 100 MG TABLET 250 MG PO (08:42)
--- NOTE | 2019-03-27 10:32 | PC.NURSE ---
PATIENT TOOK SHOWER THIS SHIFT, ABD BINDER REPLACED. PAIN TOLERABLE W/ MEDICATIONS. GIVEN SCRIPT, REVIEWED ALL DC PAPERWORK. SPOUSE ARRIVED WITH HER CLOTHING, PATIENT'S SPOUSE ARRIVED. PATIENT LEFT BY WC W/ ALL BELONGINGS AND PAPERWORK W/ DENTAL NURSE ESCORT.
== END 2019-03-27 10:34 | disposition home or self-care (01) | DRG 742 ==
LOC: OR 16:28 → AC 03-23 10:56
PROVIDERS: Admitting Provider Specialist; PCP Physician Assistant Medical; Visit Provider Specialist
PROC: 0UT24ZZ Resection of Bilateral Ovaries, Percutaneous Endoscopic Approach (ICD-10-PCS; CPT 58661; principal; 2019-03-22 15:30)
DX: N83.202 Unspecified ovarian cyst, left side (principal); K91.72 Accidental puncture and laceration of a digestive system organ or structure during other procedure; Z68.42 Body mass index [BMI] 45.0-49.9, adult; N83.201 Unspecified ovarian cyst, right side; N73.6 Female pelvic peritoneal adhesions (postinfective); R10.2 Pelvic and perineal pain; Y83.8 Other surgical procedures as the cause of abnormal reaction of the patient, or of later complication, without mention of misadventure at the time of the procedure; E66.01 Morbid (severe) obesity due to excess calories; M79.7 Fibromyalgia; G47.33 Obstructive sleep apnea (adult) (pediatric); F31.9 Bipolar disorder, unspecified; Z53.31 Laparoscopic surgical procedure converted to open procedure; R11.0 Nausea
CPT/HCPCS: 36415; 58720; 80053; 85025; 94762; 97116; 97161; 97530; J0360; J1100; J1170; J1650; J1885; J2060; J2250; J2405; J2704; J2765; J3010; J7121

== ENCOUNTER 2019-03-30 18:04 | Emergency (ER) | payer OTHER, SELFPAY ==
[2019-03-22 16:58] VITALS: BMI 48.5
[2019-03-30 18:08] VITALS: BP 113/65; PULSE 75; RESP 20; TEMP 38.1; O2SAT 95
--- NOTE | 2019-03-30 18:37 | ED.ABDPAIN ---
HPI - Abdominal Pain General Chief Complaint: Abdominal Pain Stated Complaint: BLEEDING AFTER SURGERY Time Seen by Provider: 03/30/19 18:09 Source: patient and old records reviewed Mode of arrival: Ambulatory Limitations: no limitations History of Present Illness HPI narrative: Patient is a 43-year-old female who presents with abdominal pain. She actually had bilateral oophorectomy on his 03/22/2019 at there were some complications is it was adhered to the intestine. General surgery actually had to help. She has a large incision on her abdomen both vertical and horizontal she has multiple barry. She says earlier today she tripped she lost her balance and felt something stretch and popped. She does have some bleeding at her incision site. She is actually noted to have a fever of 100.5 in the ED. She is having quite more abdominal pain she feels like something is more deep inside. MD complaint: abdominal pain Onset (ago): hour(s) Related Data Home Medications Medication Instructions Recorded Confirmed clonazepam 0.125 mg PO DIRECTED #0 04/19/17 03/19/19 lamotrigine [Lamictal] 250 mg PO QDAY #0 04/19/17 03/22/19 fluoxetine 20 mg capsule 30 mg PO QDAY #0 cap 11/07/17 03/22/19 lithium carbonate 300 mg 600 mg PO BID tab 10/19/18 03/22/19 tablet,extended release Previous Rx's Medication Instructions Recorded sumatriptan succinate 100 mg tablet See Rx Instructions PO .COMPLEX 10/19/18 #10 tab nadolol 20 mg tablet 20 mg PO DAILY #60 tab 11/14/18 oxycodone-acetaminophen 5 mg-325 2 tab PO Q4-6H PRN #30 tab 03/15/19 mg tablet estradiol 2 mg tablet 2 mg PO DAILY #30 tab 03/26/19 oxycodone 10 mg PO Q3HR PRN #30 tab 03/27/19 sulfamethoxazole-trimethoprim 1 tab PO BID 7 Days #14 tab 03/30/19 [Bactrim DS] Allergies Allergy/AdvReac Type Severity Reaction Status Date / Time adhesive tape [ADHESIVE TAPE] Allergy Unknown Blister Verified 03/22/19 14:19 amoxicillin Allergy Unknown childhood Verified 03/22/19 14:20 iodine [IODINE] Allergy Unknown breaks out Verified 03/22/19 14:19 Penicillins Allergy Unknown childhood Verified 03/22/19 14:20 NUTS Allergy Severe SWELLING,HIVES,CAN'T Uncoded 03/22/19 14:19 BREATH Review of Systems Review of Systems ROS Unobtainable: All systems reviewed & are unremarkable except as noted in HPI and below Constitutional Constitutional: Denies chills, Denies fever(s), Denies lethargy and Denies weakness Eyes Eyes: Denies change in vision, Denies eye discharge, Denies irritation and Denies loss of vision ENT Ears, Nose, Mouth, and Throat: Denies change in voice, Denies neck pain and Denies sore throat Cardiovascular Cardiovascular: Denies chest pain, Denies irregular heart rhythm, Denies lightheadedness, Denies palpitations, Denies dyspnea, Denies dyspnea on exertion and Denies orthopnea Respiratory Respiratory: Denies cough, Denies dyspnea, Denies dyspnea on exertion and Denies wheezing Gastrointestinal Gastrointestinal: Reports as per HPI Genitourinary Genitourinary: Denies hematuria, Denies flank pain, Denies urinary incontinence and Denies urinary urgency Musculoskeletal Musculoskeletal: Denies neck pain Integumentary/Breasts Skin/Breast: Reports as per HPI, Reports erythema, Reports rash and Reports unusual bruising Neurologic Neurologic: Denies loss of vision and Denies weakness Endocrine Endocrine: Denies palpitations Allergic/Immunologic Allergic/Immunologic: Denies wheezing Patient History Medical History Bipolar disorder (Acute) Vertigo (Acute) Surgical History H/O: hysterectomy (Acute) Social History household members: spouse and children Smoking Status: Never smoker alcohol intake frequency: holidays/special occasions only Substance Use Type: prescription drug Exam Initial Vital Signs Initial Vital Signs: Vital Signs Temperature 100.5 F H 03/30/19 18:08 Pulse Rate 75 03/30/19 18:08 Respiratory Rate 20 03/30/19 18:08 Blood Pressure 113/65 03/30/19 18:08 Pulse Oximetry 95 03/30/19 18:08 GENERAL: Overweight female in wheelchair HEENT: Head atraumatic,EOMI, pupils reactive, CARDIOVASCULAR: Regular rate and rhythm without murmurs, rubs or gallops. RESPIRATORY: Breath sounds equal bilaterally, no wheezes rales or rhonchi. ABDOMEN: Soft, incision site noted on the vertical incision she actually does have some blood and gross this is erythema surrounding area of the incision. She is quite tender to touch. EXTREMITIES: Normal range of motion, no clubbing or edema. Neurovascularly intact NEUROLOGICAL: Alert and oriented x4.Normal gait and speech. Cranial nerves II through XII grossly intact. SKIN: Warm, dry, no laceration, no petechiae, no rashes or lesions. Course Orders Ordered: ED Orders 03/30/19 18:37 CT abdomen pelvis w con Stat 03/30/19 18:55 Complete Blood Count AUTO DIFF Stat Comprehensive Metabolic Panel Stat Lactate (Lactic Acid) Stat Procalcitonin Stat 03/30/19 19:07 Wound Culture and Gram Stain Stat 03/30/19 19:10 Blood Culture Stat 03/30/19 21:00 Urine Culture Stat Urine Microscopic Stat Discontinued Medications Diphenhydramine HCl (Benadryl) 25 mg IV NOW ONE Stop: 03/30/19 19:19 Last Admin: 03/30/19 19:54 Dose: 25 mg Documented by: PRADEEP Hydromorphone HCl (Dilaudid) 1 mg IV NOW ONE Stop: 03/30/19 18:38 Last Admin: 03/30/19 19:01 Dose: 1 mg Documented by: CHAVO Methylprednisolone (Solu-Medrol 125 Mg Vial) 125 mg IV NOW ONE Stop: 03/30/19 19:19 Last Admin: 03/30/19 19:54 Dose: 125 mg Documented by: KANDYEED Trimethoprim/Sulfamethoxazole (Bactrim Ds) 1 tab PO NOW ONE Stop: 03/30/19 22:11 Last Admin: 03/30/19 22:17 Dose: 1 tab Documented by: PRADEEP Trimethoprim/Sulfamethoxazole (Bactrim Ds Prepack) 1 bottle MISC SEEINSTR ONE Stop: 03/30/19 22:11 Last Admin: 03/30/19 22:17 Dose: 1 bottle Documented by: PRADEEP Consultations Consultation #1: Dr. Prather, [employer], updated on patient's symptoms and test results she does appear to have some cellulitis and UTI. Agrees to follow up outpatient clinic Time: 21:26 Vital Signs Vital signs: Vital Signs - 8 hr 03/30/19 20:30 03/30/19 23:14 Temperature 99.5 F Pulse Rate 71 74 Respiratory Rate 18 18 Blood Pressure 115/78 Blood Pressure [Left Arm] 127/22 L Pulse Oximetry 96 98 MDM - Abdominal Pain Lab Data Attestation: I reviewed the patient's lab results. Result diagrams: 03/30/19 18:55 03/30/19 18:55 Labs: Lab Results 03/30/19 03/30/19 03/30/19 Range/Units 18:55 18:55 18:55 WBC 18.7 H (4.5-11.0) X10^3/uL RBC 3.34 L (4.0-5.2) X10^6/uL Hgb 9.8 L (12.0-16.0) g/dL Hct 30.2 L (36-46) % MCV 90.2 (80-100) fL MCH 29.3 (26-34) PG MCHC 32.4 (30-36) % RDW 14.0 (11.6-14.8) % Plt Count 502 H (150-400) X10^3/uL Neut % (Auto) 72.0 (50-75) % Lymph % (Auto) 16.3 L (25-40) % [place] % (Auto) 7.2 (3-14) % Eos % (Auto) 3.6 (2-4) % Baso % (Auto) 0.9 (0-2) % Neut # (Auto) 46786 H (8014-0734) /uL Lymph # (Auto) 3000 (3004-0168) /uL [place] # (Auto) 1400 H (0-900) /uL Eos # (Auto) 700 H (0-450) /uL Baso # (Auto) 200 H (0-100) /uL Sodium 136 L (137-145) mmol/L Potassium 4.2 (3.4-5.1) mmol/L Chloride 102 (98-107) mmol/L Carbon Dioxide 28 (22-32) mmol/L BUN 5 L (7-17) mg/dL Creatinine 0.70 (0.52-1.04) mg/dL Estimated GFR > 60.0 (>60) mL/min BUN/Creatinine Ratio 7.1 (6-22) Glucose 111 H (70-100) mg/dL Lactate (0.7-2.1) mmol/L Calcium 9.4 (8.4-10.2) mg/dL Total Bilirubin 0.6 (0.2-1.3) mg/dL AST 23 (14-36) IU/L ALT 9 (9-52) IU/L Alkaline Phosphatase 116 (38-126) U/L Total Protein 7.1 (6.3-8.2) g/dL Albumin 3.6 (3.5-5.0) g/dL Globulin 3.5 (1.7-4.1) g/dL Albumin/Globulin Ratio 1.0 (1.0-2.8) Procalcitonin 0.07 (<0.5) ng/mL Urine RBC (0-5/HPF) Urine WBC (0-5/HPF) Urine Bacteria (None) Ur Culture Indicated? 03/30/19 03/30/19 Range/Units 18:55 21:00 WBC (4.5-11.0) X10^3/uL RBC (4.0-5.2) X10^6/uL Hgb (12.0-16.0) g/dL Hct (36-46) % MCV (80-100) fL MCH (26-34) PG MCHC (30-36) % RDW (11.6-14.8) % Plt Count (150-400) X10^3/uL Neut % (Auto) (50-75) % Lymph % (Auto) (25-40) % [place] % (Auto) (3-14) % Eos % (Auto) (2-4) % Baso % (Auto) (0-2) % Neut # (Auto) (2408-0231) /uL Lymph # (Auto) (2507-7427) /uL [place] # (Auto) (0-900) /uL Eos # (Auto) (0-450) /uL Baso # (Auto) (0-100) /uL Sodium (137-145) mmol/L Potassium (3.4-5.1) mmol/L Chloride (98-107) mmol/L Carbon Dioxide (22-32) mmol/L BUN (7-17) mg/dL Creatinine (0.52-1.04) mg/dL Estimated GFR (>60) mL/min BUN/Creatinine Ratio (6-22) Glucose (70-100) mg/dL Lactate 1.0 (0.7-2.1) mmol/L Calcium (8.4-10.2) mg/dL Total Bilirubin (0.2-1.3) mg/dL AST (14-36) IU/L ALT (9-52) IU/L Alkaline Phosphatase (38-126) U/L Total Protein (6.3-8.2) g/dL Albumin (3.5-5.0) g/dL Globulin (1.7-4.1) g/dL Albumin/Globulin Ratio (1.0-2.8) Procalcitonin (<0.5) ng/mL Urine RBC 10-30/hpf H (0-5/HPF) Urine WBC 10-30/hpf H (0-5/HPF) Urine Bacteria Few (2-10) H (None) Ur Culture Indicated? Specimen cultured Point of care testing: Point of Care Testing Test Results Negative Urine Dip Bedside Urine Glucose Negative Bedside Urine Bilirubin - Negative Bedside Urine Ketone - Negative Urine Specific [place] 1.005 Bedside Urine Occult Blood +++ Bedside Urine pH 7.5 Bedside Urine Protein + 30 Bedside Urine Urobilinogen +/- 1mg Bedside Urine Nitrite - Negative Bedside Urine Leukocytes +++ [address] scan - abdomen: Radiologist's impression: PROCEDURE: CT ABDOMEN PELVIS W CON INDICATIONS: recent surgery pain fever TECHNIQUE: After the administration of intravenous contrast, 5 mm thick sections acquired from the diaphragm to the symphysis. 5 mm coronal and sagittal reformats were acquired. For radiation dose reduction, the following was used: automated exposure control, adjustment of mA and/or kV according to patient size. COMPARISON: [employer] [facility], [place], US PELVIC COMPLETE, 03/15/2019, 11:10. FINDINGS: Image quality: Excellent. ABDOMEN: Lung bases: Lung bases are clear. Heart size is normal. Solid organs: Liver is mildly enlarged the steatosis. Gallbladder has been removed. Biliary system is non dilated. Pancreas enhances normally. Spleen is normal in size and enhancement. No adrenal nodules. Kidneys demonstrate normal size and enhancement, without hydronephrosis. Peritoneum and bowel: Bowel loops demonstrate normal wall thickness and caliber. No dependent free fluid. Nodes and vessels: No retroperitoneal or mesenteric adenopathy by size criteria. Aorta and inferior vena cava are normal in size. Miscellaneous: Multiple foci of air and surrounding inflammatory change are present within the pelvic anterior wall subcutaneous fat. There is a small collection of fluid measuring approximately 2.8 cm. Air extends to the anterior lower rectus musculature. There is appearance of inflammation at the rectus musculature with mild edema. Small amount of fluid is noted measuring approximately 2.5 cm. PELVIS: Genitourinary: Bladder wall thickness is normal. Punctate focus of air is noted at the anterior most aspect of the bladder margin. Miscellaneous: No inguinal hernias or adenopathy. Pelvic mesenteric fat stranding is present within the midportion. There is a lobulated area of somewhat low attenuation along the posterior aspect of what appears to be uterus measuring approximately 2.6 cm. Bones: No suspicious bony lesions. No vertebral body compression fractures. IMPRESSION: 1. Foci of air and fluid within the anterior pelvic subcutaneous fat, extending to the rectus musculature as above. This is consistent with recent surgical excision. Small appearance of fluid could represent cerumen. Recommend continued clinical correlation as developing abscess cannot be definitively excluded. 2. In addition, prominent mesenteric fat stranding is present within the pelvis also consistent with recent surgical intervention. No free fluid is identified within the pelvis. Small area of lobulation is present along what appears to be the posterior uterus. This could represent area of ill-defined fibroid or potentially postoperative fluid. 3. Punctate area of air along the anterior bladder margin which could be extraluminal. This is suspected to be related to recent iatrogenic intervention. Dictated by: Mag Vargas M.D. on 03/30/2019 at 20:46 MDM Narrative Medical decision making narrative: The patient is noted to be febrile in the ED. She does appear to have cellulitis at her incision site as well along with a UTI. She has leukocytosis of [address] acid. [address] does reveal postsurgical changes, questionable abscess or developing abscess. At this time will do antibiotics. Overall patient appears well. At this time outpatient antibiotics with close follow-up. [employer] has been made aware of patient. Discharge Plan Departure Patient Disposition: Home Clinical Impression: UTI (urinary tract infection) Qualifiers: Urinary tract infection type: acute cystitis Hematuria presence: with hematuria Qualified Code(s): N30.01 - Acute cystitis with hematuria Cellulitis Qualifiers: Site of cellulitis: trunk Site of cellulitis of trunk: abdominal wall Qualified Code(s): L03.311 - Cellulitis of abdominal wall Discharge Date/Time: 03/30/19 22:00 Instructions: DI for Cellulitis -- Adult, DI for Urinary Tract Infection (UTI) Activity Restrictions/Additional Instructions: *You have been diagnosed with cellulitis *What to do: Monitor redness on abdomen. Fever control, increase fluids *Continue to take medications as directed Bactrim 1 tablet twice a day for 7 days *Follow up with your primary care provider in 2-3 days, follow up with Dr. Cheng in office please call Tuesday *Return to ER if you should have increasing redness, worsening fever, weakness, confusion or any new, worsening or concerning symptoms Prescriptions: New sulfamethoxazole-trimethoprim [Bactrim DS] 800-160 mg tablet 1 tab PO BID 7 Days Qty: 14 RF: 0 No Action lamotrigine [Lamictal] 200 MG tablet 250 mg PO QDAY Qty: 0 RF: 0 clonazepam 0.125 MG tablet,disintegrating 0.125 mg PO DIRECTED Qty: 0 RF: 0 fluoxetine 20 mg capsule 30 mg PO QDAY Qty: 0 RF: 0 nadolol 20 mg tablet 20 mg PO DAILY Qty: 60 RF: 2 estradiol 2 mg tablet 2 mg PO DAILY Qty: 30 RF: 11 oxycodone-acetaminophen [Percocet] 5-325 mg tablet 2 tab PO Q4-6H PRN (Reason: pain) Qty: 30 RF: 0 oxycodone 10 mg Tablet 10 mg PO Q3HR PRN (Reason: Pain, Severe (7-10)) Qty: 30 RF: 0 lithium carbonate 300 mg tablet extended release 600 mg PO BID RF: 0 sumatriptan succinate 100 mg tablet See Rx Instructions PO .COMPLEX Qty: 10 RF: 2 Referrals: Rebecca Castillo PA-C [Primary Care Provider] -
[2019-03-30] MEDS: HYDROMORPHONE 1 MG INJ IV (19:01)
[2019-03-30 19:04] LABS: Add Manual Diff / Slide Review NO; Basophils Absolute Auto 200 /uL (0-100); Basophils Percent Auto 0.9 % (0-2); Eosinophils Absolute Auto 700 /uL (0-450); Eosinophils Percent Auto 3.6 % (2-4); Hematocrit 30.2 % (36-46); Hemoglobin 9.8 g/dL (12.0-16.0); Lymphocytes Absolute Auto 3000 /uL (1100-4500); Lymphocytes Percent Auto 16.3 % (25-40); Mean Corpuscular HGB Conc 32.4 % (30-36); Mean Corpuscular Hemoglobin 29.3 PG (26-34); Mean Corpuscular Volume 90.2 fL (80-100); Monocytes Absolute Auto 1400 /uL (0-900); Monocytes Percent Auto 7.2 % (3-14); Neutrophils Absolute Auto 13400 /uL (1500-7000); Platelet Count 502 X10^3/uL (150-400); Red Blood Cell Count 3.34 X10^6/uL (4.0-5.2); White Blood Cell Count 18.7 X10^3/uL (4.5-11.0)
[2019-03-30 19:15] LABS: Alanine Aminotransferase 9 IU/L (9-52); Albumin 3.6 g/dL (3.5-5.0); Alkaline Phosphatase 116 U/L (38-126); Aspartate Aminotransferase 23 IU/L (14-36); BUN Creatinine Ratio 7.1 (6-22); Bilirubin Total 0.6 mg/dL (0.2-1.3); Blood Urea Nitrogen 5 mg/dL (7-17); Calcium 9.4 mg/dL (8.4-10.2); Carbon Dioxide 28 mmol/L (22-32); Chloride 102 mmol/L (98-107); Estimated Glomerular Filt Rate > 60.0 mL/min (>60); Globulin 3.5 g/dL (1.7-4.1); Glucose 111 mg/dL (70-100); HEMOLYSIS < 15 (0-50); Potassium 4.2 mmol/L (3.4-5.1); Sodium 136 mmol/L (137-145); Total Protein 7.1 g/dL (6.3-8.2)
[2019-03-30 19:29] LABS: Procalcitonin 0.07 ng/mL (<0.5)
[2019-03-30] MEDS: methylPREDNISolone 125 MG/2 ML VIAL IV (19:54)
[2019-03-30] MEDS: diphenhydrAMINE 50 MG/ML VIAL 25 MG IV (19:54)
[2019-03-30 20:30] VITALS: BP 127/22; PULSE 71; RESP 18; O2SAT 96
[2019-03-30 21:42] LABS: RBC Urine 10-30/HPF (0-5/HPF)
[2019-03-30 21:43] LABS: Bacteria Urine Few (2-10); Culture Indicated Urine Specimen Cultured; WBC Urine 10-30/HPF (0-5/HPF)
[2019-03-30] MEDS: TRIMETH/SULFA 160/800 (DS) TABLET 1 TAB PO (22:17)
[2019-03-30] MEDS: TRIMETH/SULFA 160/800 PREPACK 1 BOTTLE MISC (22:17)
[2019-03-30 23:14] VITALS: BP 115/78; PULSE 74; RESP 18; TEMP 37.5; O2SAT 98
--- NOTE | 2019-03-30 23:18 | PC.NURSE ---
2205: Patient given mesh underwear and ABD pad for incisional drainage collection. Patient stood up and no fluid was visible leaking from incision. Patient with mild cellulitis around barry/incision, redness outlined with skin marker and date and timed. Pt/spouse verbalize understanding to watch for spread of redness beyond 2 fingers width from original marking, per Dr. Boateng. Patient given extra dressings and extra mesh underwear. First dose antibiotics given orally and prepack to go home with. Wheelchair ride to vehicle, ride home with spouse.
== END 2019-03-30 22:00 | disposition home or self-care (01) ==
PROVIDERS: Emergency Provider Emergency Medicine; PCP Physician Assistant Medical
DX: N30.01 Acute cystitis with hematuria (principal); L03.311 Cellulitis of abdominal wall; R50.9 Fever, unspecified; Z98.890 Other specified postprocedural states
CPT/HCPCS: 36415; 74177; 80053; 81003; 81015; 81025; 83605; 84145; 85025; 87040; 87070; 87075; 87077; 87086; 87186; 87205; 96374; 96375; 99283; 99284; J1170; J1200; J2930

== ENCOUNTER → 2019-04-10 14:59 | Outpatient (CLI) | payer OTHER, SELFPAY ==
[2019-03-22 16:58] VITALS: BMI 48.5
== END ==
PROVIDERS: PCP Physician Assistant Medical; Visit Provider Obstetrics & Gynecology
DX: T81.49XA Infection following a procedure, other surgical site, initial encounter (principal)
CPT/HCPCS: 87070; 87075; 87077; 87186; 87205

== ENCOUNTER → 2019-04-19 13:16 | Outpatient (CLI) | payer OTHER, SELFPAY ==
[2019-03-22 16:58] VITALS: BMI 48.5
== END ==
PROVIDERS: PCP Physician Assistant Medical; Visit Provider Specialist
DX: N30.00 Acute cystitis without hematuria (principal)
CPT/HCPCS: 87086

== ENCOUNTER → 2019-04-24 15:34 | Outpatient (CLI) | payer OTHER, SELFPAY ==
[2019-03-22 16:58] VITALS: BMI 48.5
== END ==
PROVIDERS: PCP Physician Assistant Medical; Visit Provider Obstetrics & Gynecology
DX: T81.49XA Infection following a procedure, other surgical site, initial encounter (principal)
CPT/HCPCS: 87070; 87075; 87077; 87147; 87186; 87205

== ENCOUNTER → 2021-03-23 08:58 | Outpatient (CLI) | payer OTHER, SELFPAY ==
[2019-03-22 16:58] VITALS: BMI 48.5
[2021-03-23 11:30] LABS: COVID19 -Nasal RAPID Negative (Negative)
== END ==
PROVIDERS: PCP Physician Assistant Medical; Visit Provider Physician Assistant
DX: Z01.812 Encounter for preprocedural laboratory examination (principal); Z20.822 Contact with and (suspected) exposure to COVID-19
CPT/HCPCS: 87635

== ENCOUNTER 2021-03-24 10:01 | Day surgery (SDC) | payer OTHER, SELFPAY ==
[2019-03-22 16:58] VITALS: BMI 48.5
--- NOTE | 2021-03-24 | PATH_ITS ---
[facility] Accession Number: [id number] . 01 Material submitted: . PART A: colon - CECAL POLYP PART B: colon - ASCENDING COLON POLYP PART C: colon - RANDOM COLON BIOPSIES . 01 Clinical history: . SDC C: EXCLUDE MICROSCOPIC GASTRITIS . 02 Diagnosis: A. Cecal Polyp, Biopsy: Sessile serrated adenoma. . B. Ascending Colon Polyp, Biopsy: Sessile serrated adenoma. . C. Random Colon, Biopsies: Colonic mucosa with no diagnostic abnormality. Negative for active, chronic, and microscopic colitis. Negative for dysplasia and malignancy. . MRV 03/27/2021 1045 Local . 02 Electronically signed: . Christiano Braun MD, PhD, Pathologist NPI- [id number] . 01 Gross description: . Part A: CECAL POLYP: Received in formalin are multiple fragment(s) of puentes, soft tissue measuring 1.5 x 1.0 x 0.5 cm in aggregate submitted entirely in 1 cassette(s) Part B: ASCENDING COLON POLYP: Received in formalin are 2 fragment(s) of puentes, soft tissue measuring 1.0 x 0.7 x 0.2 cm to 0.4 x 0.3 x 0.1 cm submitted entirely in 1 cassette(s) Part C: RANDOM COLON BIOPSIES: Received in formalin are 4 fragment(s) of puentes, soft tissue measuring 0.5 x 0.2 x 0.2 cm to 0.1 x 0.1 x 0.1 cm submitted entirely in 1 cassette(s) /TERRA 03/25/2021 0139 Local . 02 Pathologist provided ICD-10: R19.7, R10.9, D12.0, D12.2 . 02 CPT . 553831, 948009, [id number] Performed at: 01 [facility] [address] [place] [address], [place], [place] [id number] MD Oumar Caruso MD Phone: [phone] [facility]formed at: [facility] [address] [address] [place], [place] [id number] MD Radha Huntley MD Phone: [phone]
[2021-03-24 10:25] VITALS: BP 162/87; PULSE 85; RESP 18; TEMP 36.9; O2SAT 97; BMI 47.5
[2021-03-24] MEDS: SODIUM CHLORIDE 0.9% 1,000 ML 84 ML IV (10:42)
--- NOTE | 2021-03-24 11:35 | PM.HP.1 ---
History of Present Illness History of Present Illness Date Patient Seen: 03/24/21 Time Patient Seen: 11:35 Chief complaint: SDC Narrative: I reviewed my note from February 02 no changes. Patient History Medical History Bipolar disorder Vertigo Surgical History H/O: hysterectomy Family & Social History Social History: household members spouse,children Tobacco & Substance use: Smoking Status Never smoker alcohol intake current alcohol intake frequency holiday/special occasion Substance Use Type does not use,marijuana,prescription drug Meds Home Medications and Allergies Home Medications Medication Instructions Recorded Confirmed Type fluoxetine 20 mg capsule 30 mg PO QDAY #0 cap 11/07/17 03/24/21 History lithium carbonate 300 mg 600 mg PO BID tab 10/19/18 03/24/21 History tablet,extended release sumatriptan succinate 100 mg tablet See Rx Instructions PO .COMPLEX 10/19/18 03/24/21 Rx #10 tab clonazepam 0.125 mg disintegrating 0.125 mg PO DIRECTED PRN #0 04/09/19 03/24/21 History tablet oxycodone-acetaminophen 5 mg-325 2 tab PO Q4-6H PRN #30 tab 04/14/19 03/24/21 Rx mg tablet (Percocet) lamotrigine 200 mg tablet 100 mg PO DAILY tab 05/02/19 03/24/21 History (Lamictal) fluconazole 150 mg tablet 150 mg PO Q3D #2 tab 05/16/19 03/24/21 Rx (Diflucan) nadolol 20 mg tablet 20 mg PO DAILY #60 tab 06/05/19 03/24/21 Rx Allergies Allergy/AdvReac Type Severity Reaction Status Date / Time nut - unspecified Allergy Severe Anaphylaxis Verified 03/24/21 10:13 adhesive tape [ADHESIVE TAPE] Allergy Unknown Blister Verified 05/01/19 10:05 amoxicillin Allergy Unknown childhood Verified 05/01/19 10:05 iodine [IODINE] Allergy Unknown breaks out Verified 05/01/19 10:05 Penicillins Allergy Unknown childhood Verified 05/01/19 10:05 Review of Systems Review of Systems ROS: Yes All systems reviewed with the patient and are negative except as otherwise documented Exam Vital Signs (past 8 hours): - 03/24/21 10:25 Temperature 98.5 F Pulse Rate 85 Respiratory Rate 18 Blood Pressure 162/87 H Pulse Oximetry 97 Oxygen Delivery Method Room Air Const General: cooperative and comfortable Orientation: alert HENMT Head: normocephalic Ears: external ears normal Nose: external nose normal Face and sinus: normal facial exam Mouth: oral mucosae normal Eyes General: appearance normal, both eyes and all related structures Neck Neck: normal visual inspection Chest Chest: normal inspection of the chest Resp Effort & Inspection: normal respiratory effort Auscultation: clear to auscultation bilaterally Cardio Rate: regular rate Rhythm: regular rhythm Heart Sounds: no murmurs GI Inspection: normal to inspection Palpation: soft and No tender Auscultation: normal bowel sounds Skin General: no rashes or lesions noted and No jaundice Neuro General: patient alert and moves all extremities Cognition: normal cognition Speech: speech normal Extrem General: no pedal edema Psych Appearance: grossly normal Assessment & Plan Assessment & Plan narrative: Abdominal pain on the right side and chronic diarrhea colonoscopy is pursued today. Time Spent With Patient Critical Care time: I spent a total of [] minutes of critical care time on this patient's care today; this time is exclusive of procedural time.
--- NOTE | 2021-03-24 11:38 | PM.PREOP ---
Pre-operative Note COVID-19 COVID-19 status: Negative Result date/Date tested (Pos, Neg/Pending): 03/23/21 Interval Note History & Physical reviewed/Exam performed by Physician: Yes Changes to H&P: No ASA Class (for procedural sedation): III
--- NOTE | 2021-03-24 12:21 | PM.OP.COLON ---
Operative Date/Time/Diagnoses Date of procedure: 03/24/21 Time of procedure: 12:21 Pre-op diagnosis: Diarrhea right-sided abdominal pain Post-op diagnosis: same Procedure & Clinicians Study performed: Colonoscopy with hot snare polypectomy and random biopsies Same procedure as scheduled: Yes Indications: Right-sided abdominal pain chronic diarrhea Surgeon: Dilip Thakkar Procedure Notes SCOAP/Timeout: Done Procedure in detail: After the risks and benefits were explained, written and verbal informed consent was obtained. The patient was brought into the procedure room and placed into the left lateral decubitus position. Conscious sedation medication was applied as per nursing documentation. Digital rectal examination was accomplished. The scope was introduced into the patient and advanced under direct visualization to the cecum as identified by the appendiceal orifice and ileocecal valve. The scope was slowly withdrawn to carefully examine the mucosa for any defects or lesions. Comprehensive imaging was accomplished throughout the rectum including the dentate line. The colon was decompressed, the scope was then removed from the patient who tolerated the procedure well. Bowel prep fair but with copious irrigation and suction was rendered adequate Pediatric colonoscope Scope withdrawal time: 26 minutes Sedation minutes: 37 Complications: none Impression: There was no evidence of any macroscopic colitis. Random colon biopsies were taken for exclusion of microscopic disease. The terminal ileum was interrogated and appeared visually normal. In the cecum there is an approximately 12 mm sessile polyp removed with hot snare. This could not be aspirated through the accessory channel of the scope and we section of the polyp after it had been removed in order to effectively aspirate. There is a 2nd sessile 1 cm polyp in the ascending colon removed with hot snare. No additional pathology was appreciated throughout. Endoscopic diagnosis 1. Colon polyps 2. Otherwise visually unremarkable colonoscopy to cecum and terminal ileum Post-procedure Recommendations: Colonoscopy in 3 years Plan for aftercare: 1. Await histopathology 2. Repeat colonoscopy 3 years. Disposition: PACU
[2021-03-24 12:24] VITALS: BP 105/62; PULSE 70; RESP 12; TEMP 36.8; O2SAT 100
[2021-03-24 12:28] VITALS: BP 111/64; PULSE 70; RESP 12; O2SAT 100
[2021-03-24 12:33] VITALS: BP 106/59; PULSE 65; RESP 14; O2SAT 98
[2021-03-24 12:43] VITALS: BP 109/64; PULSE 65; RESP 12; TEMP 36.8; O2SAT 96
== END 2021-03-24 13:04 | disposition home or self-care (01) ==
PROVIDERS: PCP Physician Assistant Medical; Referring Provider Internal Medicine Gastroenterology; Visit Provider Internal Medicine Gastroenterology
PROC: 0DJD8ZZ Inspection of Lower Intestinal Tract, Via Natural or Artificial Opening Endoscopic (ICD-10-PCS; CPT 45378; principal; 2021-03-24 11:30)
DX: R10.9 Unspecified abdominal pain (principal); R19.7 Diarrhea, unspecified; E28.2 Polycystic ovarian syndrome; E66.9 Obesity, unspecified; M79.7 Fibromyalgia; K58.0 Irritable bowel syndrome with diarrhea; D12.0 Benign neoplasm of cecum; D12.2 Benign neoplasm of ascending colon
CPT/HCPCS: 45385; 45380; J2704

== ENCOUNTER → 2021-06-15 08:08 | Outpatient (CLI) | payer OTHER, SELFPAY ==
[2019-03-22 16:58] VITALS: BMI 48.5
--- NOTE | 2021-06-15 08:30 | DI.US.S_ITS ---
PROCEDURE: US PELVIC COMPLETE INDICATIONS: PAIN. HISTORY OF OVARIAN CYSTS. TECHNIQUE: Real-time scanning was performed of the pelvic organs, with image documentation. Additional endovaginal scanning was necessary due to incomplete visualization of the adnexal and endometrial structures by transabdominal scanning. COMPARISON: [facility], , US PELVIC/TRANSVAGINAL, 04/12/2020, 19:41. [facility], , CT ABDOMEN/PELVIS WITH CONTRAST, 06/02/2021, 21:09. [facility], US PELVIC COMPLETE, 03/15/2019, 11:10. FINDINGS: Uterus: Removed. Ovaries: Removed. Other: No pathologic free abdominal or pelvic fluid. Along the midline of the pelvis, there is an irregular heterogeneous cystic and solid focus with minimal vascularity along 1 margin that measures 4.4 x 2.3 x 2.7 cm. On the prior recent CT, this measured 5.3 x 2 7 cm in greatest axial dimension. IMPRESSION: Heterogeneous cystic and solid focus seen that corresponds to the lesion seen on the recent CT examination. This is not enlarged compared to the prior recent CT study. A similar lesion has been seen on prior studies including 2019. We strive to produce accurate, complete, and clear reports of imaging services. To assist us in improving patient care, this report was composed using standard report templates and voice recognition software. Therefore, it may contain abnormal punctuation, insertions and/or omissions. Occasional wrong-word or sound-alike substitutions may occur. Though we review the report and make efforts to correct it, we do recommend that the report be read carefully in proper context to recognize any text inaccuracies. Dictated by: Yariel Buckner M.D. on 06/15/2021 at 9:46 Approved by: Yariel Buckner M.D. on 06/15/2021 at 9:51
== END ==
PROVIDERS: PCP Physician Assistant Medical; Referring Provider Specialist; Visit Provider Specialist
DX: R10.2 Pelvic and perineal pain (principal); N94.9 Unspecified condition associated with female genital organs and menstrual cycle
CPT/HCPCS: 76830; 76856

== ENCOUNTER 2022-02-23 21:32 | Emergency (ER) | payer OTHER, SELFPAY ==
[2019-03-22 16:58] VITALS: BMI 48.5
[2022-02-23 21:40] VITALS: BP 169/87; PULSE 90; RESP 18; TEMP 36.4; O2SAT 97; BMI 47.8
--- NOTE | 2022-02-23 23:21 | PC.NURSE ---
pt states this all started about 4 months ago when she had covid. pt was coughing a lot and heard a sudden pop in her left ear. pt had immediate decrease in hearing. pt then struggled for months with some weird yeasty discharge, pcp prescribed Rx for tx, then walk in clinic. this tuesday, pt then had sudden increase in pain in the right ear and decrease hearing.
--- NOTE | 2022-02-23 23:36 | DI.CT.S_ITS ---
PROCEDURE: CT MASTOID TEMPORAL INDICATIONS: chronic R ear and mastoid pain x4 months, worsening COMPARISON: None. TECHNIQUE: Noncontrast 0.6 mm thick axial sections acquired through each temporal bone separately. Coronal images are reformatted. FINDINGS: Image quality: Excellent. RIGHT: External auditory canal: There is a soft tissue thickening and partial fluid opacification of the external auditory canal. Middle ear: There is diffuse abnormal fluid density within the right middle ear. No definite bony erosions of the middle ear structures. Inner ear: Inner ear is normally formed and appears unremarkable. Facial nerve appears normal throughout is course. Mastoids: There is partial fluid opacification of the right mastoid air cells consistent with mastoiditis. Skin and soft tissues: No discrete soft tissue abscess identified LEFT: External auditory canal: Canal has a normal appearance. Middle ear: The middle ear structures, including the ossicles and tympanic membrane, appear normal. No abnormal fluid or soft tissue density. Inner ear: Inner ear is normally formed and appears unremarkable. Facial nerve appears normal throughout its course. Mastoids: Mastoid air cells are clear. MISCELLANEOUS: Visualized surrounding bones appear unremarkable. Visualized intracranial structures, including the cerebellopontine angle cisterns, appear normal. IMPRESSION: 1. Partial fluid opacification of the right mastoid air cells consistent with partial mastoiditis. No definite bony erosions or periosteal reaction. 2. Abnormal fluid density demonstrated within the right external auditory canal and middle ear. Associated wall thickening demonstrated within the external auditory canal. The findings are nonspecific but likely reflect infection. Recommend correlation clinically and if indicated a follow-up contrast enhanced study may be performed for further evaluation. Dictated by: Oumar Phillips M.D. on 02/24/2022 at 0:57 Approved by: Oumar Phillips M.D. on 02/24/2022 at 1:05
[2022-02-23] MEDS: HYDROCODONE/ACET 5/325 TABLET 2 TAB PO (23:48)
--- NOTE | 2022-02-23 23:49 | PC.NURSE ---
pt admitted to taking 11 tylenol this morning to try and get the pain to stop, since she takes lithium, she cannot take ibuprofen. pt educated on possibility that you can OD on tylenol. pt stated she does know this but she needed the pain to stop. she did not mean this in any way to be an attempt at suicide, but she did want to fall asleep thinking she would wake up and feel better. spoke with MD about large dose of tylenol prior to administering norco to pt. MD aware and okayed use of [place].
--- NOTE | 2022-02-24 00:16 | ED_ITS ---
HPI - Ear Problem General Chief complaint: Ear Stated complaint: rt ear pain Time Seen by Provider: 02/23/22 23:24 Source: patient Mode of arrival: Ambulatory History of Present Illness HPI Narrative: 46-year-old female nonsmoker with history of migraines and sleep apnea presents with her in the chief complaint of right ear pain over the past few months. She states that it 1st started after having COVID and she had been treated in November with ofloxacin drops for what was thought to be otitis externa her symptoms never really greatly improved and she was recently seen by her primary care provider who did a culture and found both yeast and coagulase- negative Staphylococcus. She complains of ongoing severe pain in her right ear with decreased ability to hear in the occasional drainage. She denies any systemic symptoms such as fever chills nor nausea or vomiting. She reports that she has a referral to ear nose and throat but has been unable to get in Related Data Home Medications Medication Instructions Recorded Confirmed fluoxetine 20 mg capsule 30 mg PO QDAY #0 caps 11/07/17 03/24/21 lithium carbonate 300 mg 600 mg PO BID 10/19/18 03/24/21 tablet,extended release clonazepam 0.125 mg disintegrating 0.125 mg PO DIRECTED PRN 04/09/19 03/24/21 tablet Anxiety ##0 lamotrigine 200 mg tablet 100 mg PO DAILY 05/02/19 03/24/21 (Lamictal) Previous Rx's Medication Instructions Recorded sumatriptan succinate 100 mg tablet See Rx Instructions PO .COMPLEX 10/19/18 #10 tabs oxycodone-acetaminophen 5 mg-325 2 tab PO Q4-6H PRN pain #30 tabs 04/14/19 mg tablet (Percocet) fluconazole 150 mg tablet 150 mg PO Q3D Yeast 2 doses #2 tabs 05/16/19 (Diflucan) nadolol 20 mg tablet 20 mg PO DAILY #60 tabs 06/05/19 clindamycin HCl 300 mg capsule 300 mg PO Q6H 10 days #40 caps 02/24/22 ketorolac 10 mg tablet 10 mg PO Q6H PRN pain #14 tabs 02/24/22 ondansetron 4 mg disintegrating 4 mg PO TID-QID PRN nausea and 02/24/22 tablet vomiting #10 tabs oxycodone 5 mg tablet 5 mg PO Q4-6H PRN pain #10 tabs 02/24/22 Allergies Allergy/AdvReac Type Severity Reaction Status Date / Time nut - unspecified Allergy Severe Anaphylaxis Verified 03/24/21 10:13 adhesive tape [ADHESIVE TAPE] Allergy Unknown Blister Verified 05/01/19 10:05 amoxicillin Allergy Unknown childhood Verified 05/01/19 10:05 iodine [IODINE] Allergy Unknown breaks out Verified 05/01/19 10:05 Penicillins Allergy Unknown childhood Verified 05/01/19 10:05 Review of Systems Review of Systems Narrative: GENERAL: Denies chills, fatigue, malaise, fever, sweats. HEENT: See HPI RESPIRATORY: Denies dyspnea, cough, wheezing, hemoptysis, sputum. CARDIOVASCULAR: Denies chest pain, palpitations, orthopnea, edema, GASTROINTESTINAL: Denies nausea, vomiting, abdominal pain, diarrhea, constip ation, melena. : Denies dysuria, frequency, incontinence, hematuria, urinary retention. MUSCULOSKELETAL: denies weakness, joint pain, or bony pain SKIN: Denies rash, skin lesions, or other NEUROLOGIC: Denies weakness, headache, numbness, change in speech, confusion, seizures, incoordination. PSYCHIATRIC: No concerning psychosocial issues. 12 point review of systems is negative except for those stated above Patient History Medical History (Updated 02/24/22 @ 02:03 by Nav Schmidt DO) Bipolar disorder Vertigo Surgical History H/O: hysterectomy Social History household members: spouse and children Smoking Status: Never smoker alcohol intake: current Smoking Status: Never smoker alcohol intake frequency: holidays/special occasions only Substance Use Type: does not use, marijuana and prescription drug Exam Narrative Exam Narrative: GENERAL: [46] year old patient appears stated age. Well-developed patient, in obvious distress, clearly uncomfortable and complaining of right ear pain HEAD: Atraumatic. Normocephalic. EYES: Pupils equal round and reactive. Extraocular motions intact. No scleral icterus. No injection or drainage. ENT: Tender to palp on R mastoid, without erythema, edema or bogginess. R EAC quite edematous and erythematous with drainage and debris. Nose without bleeding, purulent drainage. Throat without erythema, tonsillar hypertrophy or exudate. Airway patent. NECK: Trachea midline. Non tender CARDIOVASCULAR: Regular rate and rhythm without murmurs, gallops, or rubs. RESPIRATORY: Clear to auscultation. Breath sounds equal bilaterally. No wheezes, rales, or rhonchi. GASTROINTESTINAL: Abdomen soft, non-tender, nondistended. EXTREMITIES: No edema or joint tenderness. BACK: Nontender without deformity or crepitance. No flank tenderness. NEURO: AOx3. SKIN: No rash or erythema of visible areas Initial Vital Signs Initial Vital Signs: Vital Signs Temperature 97.5 F L 02/23/22 21:40 Pulse Rate 90 02/23/22 21:40 Respiratory Rate 18 02/23/22 21:40 Blood Pressure 169/87 H 02/23/22 21:40 Pulse Oximetry 97 02/23/22 21:40 Oxygen Delivery Method 02/23/22 21:40 Course Orders Ordered: ED Orders 02/23/22 23:36 CT mastoid temporal Stat Discontinued Medications Hydrocodone Bitart/Acetaminophen (Hydrocodone/Acet 5/325 Tablet) 2 tab PO NOW ONE Stop: 02/23/22 23:37 Last Admin: 02/23/22 23:48 Dose: 2 tab Documented By: VALERIE Clindamycin HCl (Clindamycin 150 Mg Capsule) 300 mg PO NOW ONE Stop: 02/24/22 02:01 Last Admin: 02/24/22 02:07 Dose: 300 mg Documented By: YANETH Ketorolac Tromethamine (Ketorolac 30 Mg/Ml Vial) 30 mg IM NOW ONE Stop: 02/24/22 02:00 Last Admin: 02/24/22 02:07 Dose: 30 mg Documented By: YANETH Oxycodone/Acetaminophen (Oxycodone/Apap 5/325 Prepack) 1 bottle MISC SEEINSTR ONE Stop: 02/24/22 02:01 Last Admin: 02/24/22 02:07 Dose: 1 bottle Documented By: YANETH Consultations Consultation #1: Discussed with on-call ENT, recommends oral antibiotics, pain control and close follow-up, requests oral ABX (Clinda given PCN allergy) and contact info for office for follow up Vital Signs Vital signs: Vital Signs - 8 hr 02/23/22 21:40 02/24/22 02:23 Temperature 97.5 F L Pulse Rate 90 86 Respiratory Rate 18 19 Blood Pressure 169/87 H Pulse Oximetry 97 98 Oxygen Delivery Method Room Air Room Air Discharge Plan Departure Patient Disposition: Home Clinical Impression: Acute mastoiditis Instructions: DI for Mastoiditis-Adult Activity Restrictions/Additional Instructions: *You have been diagnosed with [acute right-sided mastoiditis] *What to do: *Please continue to take your regular medications as directed. [x ] New medication prescriptions sent to your pharmacy: [ [facility]] [ ] New medication written as a paper prescription [ ] No new medications given *Please follow up with [facility]. Please call later this morning, let them know that you were in the emergency department and we would like you to be seen in follow-up. I will electronically transmitted a copy of the note to their office. *Return to Emergency Department if you should have any new, worsening or concerning symptoms, such as [fever greater than 101 F, shaking chills, worsening pain, persistent vomiting or other bothersome symptoms] Prescriptions: New clindamycin HCl 300 mg capsule 300 mg PO Q6H 10 Days Qty: 40 0RF ondansetron 4 mg tablet,disintegrating 4 mg PO TID-QID PRN (Reason: nausea and vomiting) Qty: 10 0RF ketorolac 10 mg tablet 10 mg PO Q6H PRN (Reason: pain) Qty: 14 0RF oxycodone 5 mg tablet 5 mg PO Q4-6H PRN (Reason: pain) Qty: 10 0RF No Action fluoxetine 20 mg capsule 30 mg PO QDAY Qty: 0 clonazepam 0.125 mg tablet,disintegrating 0.125 mg PO DIRECTED PRN (Reason: Anxiety) Qty: 0 lamotrigine [Lamictal] 200 mg tablet 100 mg PO DAILY Rx Instructions: 3 tabs qd fluconazole [Diflucan] 150 mg tablet 150 mg PO Q3D Qty: 2 1RF nadolol 20 mg tablet 20 mg PO DAILY Qty: 60 2RF oxycodone-acetaminophen [Percocet] 5-325 mg tablet 2 tab PO Q4-6H PRN (Reason: pain) Qty: 30 0RF lithium carbonate 300 mg tablet extended release 600 mg PO BID sumatriptan succinate 100 mg tablet See Rx Instructions PO .COMPLEX Qty: 10 2RF Dose Instruction: take 1 tab at onset of headache; if no relief may repeat 1 tab in 2hr; max = 2 tabs/24 hrs PO Rx Instructions: take 1 tab at onset of headache; if no relief may repeat 1 tab in 2hr; max = 2 tabs/24 hrs PO Referrals: Simone Sanford MD [Physician] - Rebecca Castillo PA-C [Primary Care Provider] - Visit Report Forms: Patient Portal/API
--- NOTE | 2022-02-24 01:55 | PC.NURSE ---
Provider notified that pt continues to cry and moan out in pain. No new orders at this time.
[2022-02-24] MEDS: KETOROLAC 30 MG/ML VIAL IM (02:07)
[2022-02-24] MEDS: OXYCODONE/APAP 5/325 PREPACK 1 BOTTLE MISC (02:07)
[2022-02-24] MEDS: CLINDAMYCIN 150 MG CAPSULE 300 MG PO (02:07)
[2022-02-24 02:23] VITALS: PULSE 86; RESP 19; O2SAT 98
== END 2022-02-24 02:24 | disposition home or self-care (01) ==
PROVIDERS: Emergency Provider Emergency Medicine; PCP Physician Assistant Medical
DX: H70.91 Unspecified mastoiditis, right ear (principal); Z86.16 Personal history of COVID-19
CPT/HCPCS: 70480; 80053; 80178; 80329; 83690; 85025; 96365; 96372; 96375; 99283; 99284; G0480; J0696; J1170; J1885; J2405

== ENCOUNTER 2022-02-24 20:58 | Emergency (ER) | payer OTHER, SELFPAY ==
[2019-03-22 16:58] VITALS: BMI 48.5
[2022-02-24 21:06] VITALS: BP 168/74; PULSE 100; RESP 24; TEMP 37; O2SAT 96; BMI 48.7
[2022-02-24 21:25] LABS: Add Manual Diff / Slide Review NO; Basophils Absolute Auto 0 /uL (0-100); Basophils Percent Auto 0.4 % (0-2); Eosinophils Absolute Auto 100 /uL (0-450); Eosinophils Percent Auto 0.8 % (2-4); Hematocrit 38.7 % (36-46); Hemoglobin 12.6 g/dL (12.0-16.0); Lymphocytes Absolute Auto 1500 /uL (1100-4500); Lymphocytes Percent Auto 11.8 % (25-40); Mean Corpuscular HGB Conc 32.5 % (30-36); Mean Corpuscular Hemoglobin 27.2 PG (26-34); Mean Corpuscular Volume 83.6 fL (80-100); Monocytes Absolute Auto 400 /uL (0-900); Monocytes Percent Auto 3.1 % (3-14); Neutrophils Absolute Auto 10700 /uL (1500-7000); Neutrophils Percent Auto 83.9 % (50-75); Platelet Count 355 X10^3/uL (150-400); Red Blood Cell Count 4.63 X10^6/uL (4.0-5.2); Red Cell Distribution Width 16.4 % (11.6-14.8); White Blood Cell Count 12.7 X10^3/uL (4.5-11.0)
[2022-02-24] MEDS: ONDANSETRON 4 MG/2 ML INJ IV (21:36)
[2022-02-24 21:38] LABS: Alanine Aminotransferase 16 IU/L (<35); Albumin 4.2 g/dL (3.5-5.0); Albumin Globulin Ratio 1.1 (1.0-2.8); Alkaline Phosphatase 116 U/L (38-126); Aspartate Aminotransferase 31 IU/L (14-36); BUN Creatinine Ratio 12.5 (6-22); Bilirubin Total 0.6 mg/dL (0.2-1.3); Blood Urea Nitrogen 8 mg/dL (7-17); Calcium 9.4 mg/dL (8.4-10.2); Carbon Dioxide 25 mmol/L (22-32); Chloride 101 mmol/L (98-107); Estimated Glomerular Filt Rate > 60 mL/min (>60); Globulin 3.8 g/dL (1.7-4.1); Glucose 164 mg/dL (70-100); HEMOLYSIS < 15 (0-50); Lipase 43 U/L (23-300); Potassium 4.5 mmol/L (3.4-5.1); Sodium 137 mmol/L (137-145)
--- NOTE | 2022-02-24 21:43 | ED_ITS ---
HPI - Nausea/Vomiting/Diarrhea General Chief complaint: Nausea/Vomiting/Diarrhea Stated complaint: states is puking blue Time Seen by Provider: 02/24/22 21:15 Source: patient Mode of arrival: Wheelchair History of Present Illness HPI Narrative: Patient is a 46-year-old female history of bipolar, migraines sleep apnea presents today with vomiting and ongoing right ear pain. She apparently was diagnosed with mastoiditis by CT last evening. She has had ongoing right ear pain for last 4 months. She was started on clindamycin she has an appointment with ENT tomorrow morning. She is concerned because she takes lithium she had 1 dose of Toradol and she was sent home with Toradol that she may have lithium toxicity. She says she has been vomiting blue, her antibiotic clindamycin is a blue-green color. She has minimal abdominal pain mostly complaining of ongoing ear pain. She previously took 11x 500 mg tablets of Tylenol yesterday. She overall does not feel well. Related Data Home Medications Medication Instructions Recorded Confirmed fluoxetine 20 mg capsule 30 mg PO QDAY #0 caps 11/07/17 03/24/21 lithium carbonate 300 mg 600 mg PO BID 10/19/18 03/24/21 tablet,extended release clonazepam 0.125 mg disintegrating 0.125 mg PO DIRECTED PRN 04/09/19 03/24/21 tablet Anxiety ##0 lamotrigine 200 mg tablet 100 mg PO DAILY 05/02/19 03/24/21 (Lamictal) Previous Rx's Medication Instructions Recorded sumatriptan succinate 100 mg tablet See Rx Instructions PO .COMPLEX 10/19/18 #10 tabs oxycodone-acetaminophen 5 mg-325 2 tab PO Q4-6H PRN pain #30 tabs 04/14/19 mg tablet (Percocet) fluconazole 150 mg tablet 150 mg PO Q3D Yeast 2 doses #2 tabs 05/16/19 (Diflucan) nadolol 20 mg tablet 20 mg PO DAILY #60 tabs 06/05/19 clindamycin HCl 300 mg capsule 300 mg PO Q6H 10 days #40 caps 02/24/22 ketorolac 10 mg tablet 10 mg PO Q6H PRN pain #14 tabs 02/24/22 ondansetron 4 mg disintegrating 4 mg PO Q8H PRN nausea and 02/24/22 tablet vomiting #10 tabs ondansetron 4 mg disintegrating 4 mg PO TID-QID PRN nausea and 02/24/22 tablet vomiting #10 tabs oxycodone 5 mg tablet 5 mg PO Q4-6H PRN pain #10 tabs 02/24/22 Allergies Allergy/AdvReac Type Severity Reaction Status Date / Time nut - unspecified Allergy Severe Anaphylaxis Verified 03/24/21 10:13 adhesive tape [ADHESIVE TAPE] Allergy Unknown Blister Verified 05/01/19 10:05 amoxicillin Allergy Unknown childhood Verified 05/01/19 10:05 iodine [IODINE] Allergy Unknown breaks out Verified 05/01/19 10:05 Penicillins Allergy Unknown childhood Verified 05/01/19 10:05 Review of Systems Review of Systems Narrative: GENERAL: Denies chills, fatigue, malaise, fever, sweats, travel HEENT: See HPI RESPIRATORY: Denies dyspnea, cough, wheezing, hemoptysis, sputum. CARDIOVASCULAR: Denies chest pain, palpitations, orthopnea, edema GASTROINTESTINAL: See HPI : Denies dysuria, frequency, incontinence, hematuria, urinary retention, flank pain. MUSCULOSKELETAL: Denies weakness, joint pain, or bony pain SKIN: No rash, no erythema, no pruritus NEUROLOGIC: Denies weakness, dizziness, headache, numbness, change in speech, confusion PSYCHIATRIC: No concerning psychosocial issues. 12 point review of systems is negative except for those stated above and HPI Patient History Medical History (Updated 02/24/22 @ 23:09 by Liz Boateng DO) Bipolar disorder Vertigo Surgical History H/O: hysterectomy Social History household members: spouse and children Smoking Status: Never smoker alcohol intake: current Smoking Status: Never smoker alcohol intake frequency: holidays/special occasions only Substance Use Type: marijuana and prescription drug Exam Initial Vital Signs Initial Vital Signs: Vital Signs Temperature 98.6 F 02/24/22 21:06 Pulse Rate 100 H 02/24/22 21:06 Respiratory Rate 24 02/24/22 21:06 Blood Pressure 168/74 H 02/24/22 21:06 Pulse Oximetry 96 02/24/22 21:06 Oxygen Delivery Method 02/24/22 21:06 GENERAL: Alert 46-year-old female, appears uncomfortable slightly anxious HEENT: Left ear within normal limits right ear is erythematous canal is very swollen unable to visualize tympanic membranes severely tender in the right mastoid area CARDIOVASCULAR: Regular rate and rhythm without murmurs, rubs or gallops. RESPIRATORY: Breath sounds equal bilaterally, no wheezes rales or rhonchi. ABDOMEN: Soft, nontender. Normoactive bowel sounds all 4 quadrants. No guarding or rebound. EXTREMITIES: Normal range of motion, no clubbing or edema. Neurovascularly intact NEUROLOGICAL: Alert and oriented x4. SKIN: Warm, dry, no laceration, no petechiae, no rashes or lesions. Course Orders Ordered: ED Orders 02/24/22 21:17 Acetaminophen Stat CBC Auto Diff [Complete Blood Count AUTO DIFF] Stat CMP [Comprehensive Metabolic Panel] Stat Lipase Stat [place] Stat Discontinued Medications Hydromorphone HCl (Hydromorphone 0.5 Mg Inj) 0.5 mg IV NOW ONE Stop: 02/24/22 21:59 Last Admin: 02/24/22 22:14 Dose: 0.5 mg Documented By: VIOLETA Ceftriaxone Sodium 1,000 mg/ (Sodium Chloride) 100 mls @ 200 mls/hr IV NOW ONE Stop: 02/24/22 21:59 Last Infusion: 02/24/22 22:44 Dose: 0 mls/hr Documented By: Admin: 02/24/22 22:14 Dose: 200 mls/hr Documented By: VIOLETA Ondansetron HCl (Ondansetron 4 Mg/2 Ml Inj) 4 mg IV NOW ONE Stop: 02/24/22 21:32 Last Admin: 02/24/22 21:36 Dose: 4 mg Documented By: VIOLETA Vital Signs Vital signs: Vital Signs - 8 hr 02/24/22 23:21 Pulse Rate 83 Respiratory Rate 20 Blood Pressure 134/85 Pulse Oximetry 94 Oxygen Delivery Method Room Air MDM - Nausea/Vomiting/Diarrhea Lab Data Result diagrams: 02/24/22 21:17 02/24/22 21:17 Labs: Lab Results 02/24/22 02/24/22 02/24/22 Range/Units 21:17 21:17 21:17 WBC 12.7 H (4.5-11.0) X10^3/uL RBC 4.63 (4.0-5.2) X10^6/uL Hgb 12.6 (12.0-16.0) g/dL Hct 38.7 (36-46) % MCV 83.6 (80-100) fL MCH 27.2 (26-34) PG MCHC 32.5 (30-36) % RDW 16.4 H (11.6-14.8) % Plt Count 355 (150-400) X10^3/uL Neut % (Auto) 83.9 H (50-75) % Lymph % (Auto) 11.8 L (25-40) % [place] % (Auto) 3.1 (3-14) % Eos % (Auto) 0.8 L (2-4) % Baso % (Auto) 0.4 (0-2) % Neut # (Auto) 59995 H (5563-2308) /uL Lymph # (Auto) 1500 (4094-7395) /uL [place] # (Auto) 400 (0-900) /uL Eos # (Auto) 100 (0-450) /uL Baso # (Auto) 0 (0-100) /uL Sodium 137 (137-145) mmol/L Potassium 4.5 (3.4-5.1) mmol/L Chloride 101 (98-107) mmol/L Carbon Dioxide 25 (22-32) mmol/L BUN 8 (7-17) mg/dL Creatinine 0.64 (0.52-1.04) mg/dL Estimated GFR > 60 (>60) mL/min BUN/Creatinine Ratio 12.5 (6-22) Glucose 164 H (70-100) mg/dL Calcium 9.4 (8.4-10.2) mg/dL Total Bilirubin 0.6 (0.2-1.3) mg/dL AST 31 (14-36) IU/L ALT 16 (<35) IU/L Alkaline Phosphatase 116 (38-126) U/L Total Protein 8.0 (6.3-8.2) g/dL Albumin 4.2 (3.5-5.0) g/dL Globulin 3.8 (1.7-4.1) g/dL Albumin/Globulin Ratio 1.1 (1.0-2.8) Lipase 43 (23-300) U/L Acetaminophen (10-30) ug/mL [place] 0.3 L (0.6-1.2) mmol/L 02/24/22 Range/Units 21:17 WBC (4.5-11.0) X10^3/uL RBC (4.0-5.2) X10^6/uL Hgb (12.0-16.0) g/dL Hct (36-46) % MCV (80-100) fL MCH (26-34) PG MCHC (30-36) % RDW (11.6-14.8) % Plt Count (150-400) X10^3/uL Neut % (Auto) (50-75) % Lymph % (Auto) (25-40) % [place] % (Auto) (3-14) % Eos % (Auto) (2-4) % Baso % (Auto) (0-2) % Neut # (Auto) (1994-5544) /uL Lymph # (Auto) (3808-1188) /uL [place] # (Auto) (0-900) /uL Eos # (Auto) (0-450) /uL Baso # (Auto) (0-100) /uL Sodium (137-145) mmol/L Potassium (3.4-5.1) mmol/L Chloride (98-107) mmol/L Carbon Dioxide (22-32) mmol/L BUN (7-17) mg/dL Creatinine (0.52-1.04) mg/dL Estimated GFR (>60) mL/min BUN/Creatinine Ratio (6-22) Glucose (70-100) mg/dL Calcium (8.4-10.2) mg/dL Total Bilirubin (0.2-1.3) mg/dL AST (14-36) IU/L ALT (<35) IU/L Alkaline Phosphatase (38-126) U/L Total Protein (6.3-8.2) g/dL Albumin (3.5-5.0) g/dL Globulin (1.7-4.1) g/dL Albumin/Globulin Ratio (1.0-2.8) Lipase (23-300) U/L Acetaminophen < 10 (10-30) ug/mL [place] (0.6-1.2) mmol/L MDM Narrative Medical decision making narrative: Patient he is likely to have any sort of lithium toxicity she certainly has no acute kidney injury from her 1 dose of Toradol. She has not taken any of her prescribed ketorolac. She has not taken any more Tylenol today. Her pain is out of control. She was given also Percocet is may or may not have made her nauseous. Causing her to vomit up her throw up her clindamycin, which is blue. She has an appointment with ENT tomorrow. She is given a dose of Dilaudid and Rocephin here in the emergency department. Overall feeling a little bit better. Discharge Plan Departure Patient Disposition: Home Clinical Impression: Mastitis Instructions: DI for Mastitis Activity Restrictions/Additional Instructions: *You have been diagnosed with mastitis *What to do: There is absolutely no evidence of kidney injury or lithium toxicity. You are likely vomiting due to pain in severe your infection. You must see ENT tomorrow. *Continue to take medications as directed --> SENT TO [facility] IN [place] Zofran 4 mg every 8 hours if needed for nausea or vomiting especially before taking your antibiotic Tylenol 1000 mg every 6 hours if needed for pain do not exceed 4000 mg in 1 day *Follow up with your primary care provider in 2-3 days or call [phone] *Return to ER if you should have persistent vomiting, fever pain or any new, worsening or concerning symptoms Prescriptions: New ondansetron 4 mg tablet,disintegrating 4 mg PO Q8H PRN (Reason: nausea and vomiting) Qty: 10 0RF No Action fluoxetine 20 mg capsule 30 mg PO QDAY Qty: 0 clonazepam 0.125 mg tablet,disintegrating 0.125 mg PO DIRECTED PRN (Reason: Anxiety) Qty: 0 lamotrigine [Lamictal] 200 mg tablet 100 mg PO DAILY Rx Instructions: 3 tabs qd fluconazole [Diflucan] 150 mg tablet 150 mg PO Q3D Qty: 2 1RF nadolol 20 mg tablet 20 mg PO DAILY Qty: 60 2RF oxycodone-acetaminophen [Percocet] 5-325 mg tablet 2 tab PO Q4-6H PRN (Reason: pain) Qty: 30 0RF clindamycin HCl 300 mg capsule 300 mg PO Q6H 10 Days Qty: 40 0RF ondansetron 4 mg tablet,disintegrating 4 mg PO TID-QID PRN (Reason: nausea and vomiting) Qty: 10 0RF ketorolac 10 mg tablet 10 mg PO Q6H PRN (Reason: pain) Qty: 14 0RF oxycodone 5 mg tablet 5 mg PO Q4-6H PRN (Reason: pain) Qty: 10 0RF lithium carbonate 300 mg tablet extended release 600 mg PO BID sumatriptan succinate 100 mg tablet See Rx Instructions PO .COMPLEX Qty: 10 2RF Dose Instruction: take 1 tab at onset of headache; if no relief may repeat 1 tab in 2hr; max = 2 tabs/24 hrs PO Rx Instructions: take 1 tab at onset of headache; if no relief may repeat 1 tab in 2hr; max = 2 tabs/24 hrs PO Referrals: Rebecca Castillo PA-C [Primary Care Provider] - Visit Report Forms: Patient Portal/API
[2022-02-24 21:58] LABS: Lithium 0.3 mmol/L (0.6-1.2)
[2022-02-24] MEDS: cefTRIAXone 1,000 MG in SODIUM CHLORIDE 0.9% 100 ML 200 MG IV (22:14)
[2022-02-24] MEDS: HYDROMORPHONE 0.5 MG INJ IV (22:14)
[2022-02-24 22:18] LABS: Acetaminophen < 10 ug/mL (10-30)
[2022-02-24 23:21] VITALS: BP 134/85; PULSE 83; RESP 20; O2SAT 94
== END 2022-02-24 23:23 | disposition home or self-care (01) ==
PROVIDERS: Emergency Provider Emergency Medicine; PCP Physician Assistant Medical
DX: N61.0 Mastitis without abscess (principal); R11.10 Vomiting, unspecified
CPT/HCPCS: 80053; 80178; 80329; 83690; 85025; 96365; 96375; 99283; 99284; G0480; J0696; J1170; J2405

== ENCOUNTER 2023-07-13 19:00 | Emergency (ER) | payer OTHER, SELFPAY ==
[2019-03-22 16:58] VITALS: BMI 48.5
[2023-07-13] VITALS (7 sets, daily range): BP systolic 129–155; BP diastolic 60–74; PULSE 60–71; RESP 18–20; TEMP 37.1; O2SAT 96–99; BMI 47.8
--- NOTE | 2023-07-13 19:25 | ED_ITS ---
HPI - General Adult General Chief complaint: Abdominal Pain Stated complaint: ABDOMINAL PAIN Time Seen by Provider: 07/13/23 19:07 Source: patient Mode of arrival: Wheelchair History of Present Illness HPI narrative: Patient is a 47-year-old female. Has had her gallbladder removed. Has had her ovaries removed. Here for evaluation of right-sided abdominal/adnexal pain. The pain has been there for the past several weeks. She has had an outpatient CT scan recently. Has a follow-up with her primary doctor tomorrow. No urinary symptoms. No change in bowel habits. Vaginal bleeding. She has been told that despite having her ovaries removed that she has ?residual ovarian tissue? that has caused cyst in the past. She does state that the pain is worse with movement Related Data Home Medications Medication Instructions Recorded Confirmed fluoxetine 20 mg capsule 30 mg PO QDAY #0 caps 11/07/17 02/04/23 lithium carbonate 300 mg 600 mg PO BID 10/19/18 02/04/23 tablet,extended release lamotrigine 200 mg tablet 100 mg PO DAILY 05/02/19 02/04/23 (Lamictal) dicyclomine 20 mg tablet 20 mg PO QID 02/04/23 02/04/23 rizatriptan 10 mg tablet 10 mg PO ONCE 02/04/23 02/04/23 Previous Rx's Medication Instructions Recorded sumatriptan succinate 100 mg tablet See Rx Instructions PO .COMPLEX 10/19/18 #10 tabs oxycodone-acetaminophen 5 mg-325 2 tab PO Q4-6H PRN pain #30 tabs 04/14/19 mg tablet (Percocet) nadolol 20 mg tablet 20 mg PO DAILY #60 tabs 06/05/19 ondansetron 4 mg disintegrating 4 mg PO TID-QID PRN nausea and 02/24/22 tablet vomiting #10 tabs oxycodone 5 mg tablet 5 mg PO Q4-6H PRN pain #10 tabs 02/24/22 Allergies Allergy/AdvReac Type Severity Reaction Status Date / Time nut - unspecified Allergy Severe Anaphylaxis Verified 02/04/23 14:01 adhesive tape [ADHESIVE TAPE] Allergy Unknown Blister Verified 02/04/23 14:01 amoxicillin Allergy Unknown childhood Verified 02/04/23 14:01 iodine [IODINE] Allergy Unknown breaks out Verified 02/04/23 14:01 Penicillins Allergy Unknown childhood Verified 02/04/23 14:01 Review of Systems Constitutional Constitutional: Reports system reviewed and no additional complaints, except as documented Gastrointestinal Gastrointestinal: Reports system reviewed and no additional complaints, except as documented Genitourinary Genitourinary: Reports system reviewed and no additional complaints, except as documented Musculoskeletal Musculoskeletal: Reports system reviewed and no additional complaints, except as documented Integumentary/Breasts Skin/Breast: Reports system reviewed and no additional complaints, except as documented Patient History Medical History Vertigo Bipolar disorder Surgical History H/O: hysterectomy Social History household members: spouse and children Smoking Status: Never smoker alcohol intake: current Smoking Status: Never smoker alcohol intake frequency: holidays/special occasions only Substance Use Type: marijuana and prescription drug Exam Initial Vital Signs Initial Vital Signs: Vital Signs Temperature 98.7 F 07/13/23 19:06 Pulse Rate 70 07/13/23 19:06 Respiratory Rate 20 07/13/23 19:06 Blood Pressure 155/74 H 07/13/23 19:06 Pulse Oximetry 99 07/13/23 19:06 Oxygen Delivery Method Room Air 07/13/23 19:06 Resp Effort & Inspection: normal respiratory effort Cardio Rate: regular rate GI Inspection: normal to inspection and non-distended Palpation: tender Neuro General: patient alert, patient awake and moves all extremities Course Orders Ordered: ED Orders 07/13/23 19:15 Complete Blood Count AUTO DIFF Stat Comprehensive Metabolic Panel Stat Lipase Stat 07/13/23 19:25 US pelvic complete Stat Vital Signs Vital signs: Vital Signs - 8 hr 07/13/23 19:06 07/13/23 19:09 07/13/23 19:10 Temperature 98.7 F Pulse Rate 70 71 70 Respiratory Rate 20 Blood Pressure 155/74 H Pulse Oximetry 99 98 98 Oxygen Delivery Method Room Air 07/13/23 19:10 07/13/23 20:12 07/13/23 20:13 Temperature Pulse Rate 63 Respiratory Rate 19 Blood Pressure 155/74 H Pulse Oximetry 96 97 Oxygen Delivery Method Room Air 07/13/23 20:13 07/13/23 20:30 07/13/23 20:31 Temperature Pulse Rate 60 62 Respiratory Rate 18 20 Blood Pressure 129/60 Pulse Oximetry 97 97 Oxygen Delivery Method Room Air 07/13/23 20:31 Temperature Pulse Rate Respiratory Rate Blood Pressure 138/66 Pulse Oximetry Oxygen Delivery Method Medical Decision Making Medical Records Medical records reviewed: Yes I reviewed the patient's medical records. Lab Data Lab results reviewed: Yes I reviewed the patient's lab results. 07/13/23 19:15 07/13/23 19:15 Labs: Lab Results 07/13/23 Range/Units 19:15 WBC 9.8 (4.5-11.0) X10^3/uL RBC 4.46 (4.0-5.2) X10^6/uL Hgb 12.6 (12.0-16.0) g/dL Hct 38.6 (36-46) % MCV 86.6 (80-100) fL MCH 28.3 (26-34) PG MCHC 32.6 (30-36) % RDW 15.7 H (11.6-14.8) % Plt Count 293 (150-400) X10^3/uL Neut % (Auto) 55.6 (50-75) % Lymph % (Auto) 30.5 (25-40) % Towner % (Auto) 10.0 (3-14) % Eos % (Auto) 2.5 (2-4) % Baso % (Auto) 1.4 (0-2) % Neut # (Auto) 5400 (4552-7998) /uL Lymph # (Auto) 3000 (0426-2141) /uL Towner # (Auto) 1000 H (0-900) /uL Eos # (Auto) 200 (0-450) /uL Baso # (Auto) 100 (0-100) /uL Sodium 139 (137-145) mmol/L Potassium 4.3 (3.4-5.1) mmol/L Chloride 103 (98-107) mmol/L Carbon Dioxide 31 (22-32) mmol/L BUN 12 (7-17) mg/dL Creatinine 0.58 (0.52-1.04) mg/dL Estimated GFR > 60 (>60) mL/min BUN/Creatinine Ratio 20.7 (6-22) Glucose 122 H (70-100) mg/dL Calcium 9.7 (8.4-10.2) mg/dL Total Bilirubin 0.6 (0.2-1.3) mg/dL AST 89 H (14-36) IU/L ALT 29 (<35) IU/L Alkaline Phosphatase 74 (38-126) U/L Total Protein 7.6 (6.3-8.2) g/dL Albumin 4.0 (3.5-5.0) g/dL Globulin 3.6 (1.7-4.1) g/dL Albumin/Globulin Ratio 1.1 (1.0-2.8) Lipase 95 (23-300) U/L Point of Care Testing Test Results Negative Urine Dip Bedside Urine Glucose Negative Bedside Urine Ketone - Negative Urine Specific [place] 1.025 Bedside Urine Occult Blood - Negative Bedside Urine pH 6 Bedside Urine Protein - Negative Bedside Urine Urobilinogen - Negative Bedside Urine Nitrite - Negative Bedside Urine Leukocytes - Negative Esterase Point of care testing: Point of Care Testing Test Results Negative Urine Dip Bedside Urine Glucose Negative Bedside Urine Ketone - Negative Urine Specific [place] 1.025 Bedside Urine Occult Blood - Negative Bedside Urine pH 6 Bedside Urine Protein - Negative Bedside Urine Urobilinogen - Negative Bedside Urine Nitrite - Negative Bedside Urine Leukocytes - Negative Esterase Imaging Data US - OPERATIONS RESEARCH DIRECTOR: Radiologist's Impression: PROCEDURE: US PELVIC COMPLETE INDICATIONS: R adnexa pain TECHNIQUE: Real-time scanning was performed of the pelvic organs, with image documentation. Additional endovaginal scanning was necessary due to incomplete visualization of the adnexal and endometrial structures by transabdominal scanning. COMPARISON: [facility], , US PELVIC COMPLETE, 06/15/2021, 8:23. FINDINGS: Uterus: The uterus is surgically absent. The vaginal cuff is normal. No associated mass. Ovaries: Reportedly surgically absent. No suspicious adnexal mass. Other: No pathologic free abdominal or pelvic fluid. IMPRESSION: Prior hysterectomy and oophorectomy. No sonographic abnormality. MDM Narrative Medical decision making narrative: He was able to review the CT scan that she had performed at the outpatient facility on 06/30/2023. Also labs associated with this. The studies were unremarkable. Has a benign exam. Ultrasound today is unremarkable. Patient understands lack of a definitive diagnosis but I advised that she keep her appointment that she was scheduled with her primary doctor tomorrow to discuss the indications for a referral to see either General surgery or ton container shipper. We did discuss other possibilities such as adhesions that can cause discomfort that are not necessarily seen on imaging studies. No indication to change any of her medications. She has pain medications at home. She was given return precautions. Discharge Plan Departure Patient Disposition: Home Clinical Impression: Abdominal pain Instructions: DI for Abdominal Pain-Adult Activity Restrictions/Additional Instructions: I recommend that you keep your appointment that she was scheduled with your primary doctor tomorrow. You can talk with your primary doctor about potential further workup to include a referral to see ton container shipper or general surgery. Continue to take all of your medications as directed. Prescriptions: No Action fluoxetine 20 mg capsule 30 mg PO QDAY Qty: 0 lamotrigine [Lamictal] 200 mg tablet 100 mg PO DAILY Rx Instructions: 3 tabs qd nadolol 20 mg tablet 20 mg PO DAILY Qty: 60 2RF dicyclomine 20 mg tablet 20 mg PO QID rizatriptan 10 mg tablet 10 mg PO ONCE Rx Instructions: as a single dose oxycodone-acetaminophen [Percocet] 5-325 mg tablet 2 tab PO Q4-6H PRN (Reason: pain) Qty: 30 0RF ondansetron 4 mg tablet,disintegrating 4 mg PO TID-QID PRN (Reason: nausea and vomiting) Qty: 10 0RF oxycodone 5 mg tablet 5 mg PO Q4-6H PRN (Reason: pain) Qty: 10 0RF lithium carbonate 300 mg tablet extended release 600 mg PO BID sumatriptan succinate 100 mg tablet See Rx Instructions PO .COMPLEX Qty: 10 2RF Dose Instruction: take 1 tab at onset of headache; if no relief may repeat 1 tab in 2hr; max = 2 tabs/24 hrs PO Rx Instructions: take 1 tab at onset of headache; if no relief may repeat 1 tab in 2hr; max = 2 tabs/24 hrs PO Referrals: Rebecca Castillo PA-C [Primary Care Provider] - Stand Alone Forms: Patient Portal/API
--- NOTE | 2023-07-13 19:25 | DI.US.S_ITS ---
PROCEDURE: US PELVIC COMPLETE INDICATIONS: R adnexa pain TECHNIQUE: Real-time scanning was performed of the pelvic organs, with image documentation. Additional endovaginal scanning was necessary due to incomplete visualization of the adnexal and endometrial structures by transabdominal scanning. COMPARISON: [facility], , US PELVIC COMPLETE, 06/15/2021, 8:23. FINDINGS: Uterus: The uterus is surgically absent. The vaginal cuff is normal. No associated mass. Ovaries: Reportedly surgically absent. No suspicious adnexal mass. Other: No pathologic free abdominal or pelvic fluid. IMPRESSION: Prior hysterectomy and oophorectomy. No sonographic abnormality. We strive to produce accurate, complete, and clear reports of imaging services. To assist us in improving patient care, this report was composed using standard report templates and voice recognition software. Therefore, it may contain abnormal punctuation, insertions and/or omissions. Occasional wrong-word or sound-alike substitutions may occur. Though we review the report and make efforts to correct it, we do recommend that the report be read carefully in proper context to recognize any text inaccuracies. Dictated by: Barbara Barrera M.D. on 07/13/2023 at 20:35 Approved by: Barbara Barrera M.D. on 07/13/2023 at 20:36
[2023-07-13 19:26] LABS: Add Manual Diff / Slide Review NO; Basophils Absolute Auto 100 /uL (0-100); Basophils Percent Auto 1.4 % (0-2); Eosinophils Absolute Auto 200 /uL (0-450); Eosinophils Percent Auto 2.5 % (2-4); Hematocrit 38.6 % (36-46); Hemoglobin 12.6 g/dL (12.0-16.0); Lymphocytes Absolute Auto 3000 /uL (1100-4500); Lymphocytes Percent Auto 30.5 % (25-40); Mean Corpuscular HGB Conc 32.6 % (30-36); Mean Corpuscular Hemoglobin 28.3 PG (26-34); Mean Corpuscular Volume 86.6 fL (80-100); Monocytes Absolute Auto 1000 /uL (0-900); Neutrophils Absolute Auto 5400 /uL (1500-7000); Neutrophils Percent Auto 55.6 % (50-75); Platelet Count 293 X10^3/uL (150-400); Red Blood Cell Count 4.46 X10^6/uL (4.0-5.2); Red Cell Distribution Width 15.7 % (11.6-14.8); White Blood Cell Count 9.8 X10^3/uL (4.5-11.0)
[2023-07-13 19:35] LABS: Albumin Globulin Ratio 1.1 (1.0-2.8); Alkaline Phosphatase 74 U/L (38-126); Aspartate Aminotransferase 89 IU/L (14-36); BUN Creatinine Ratio 20.7 (6-22); Bilirubin Total 0.6 mg/dL (0.2-1.3); Blood Urea Nitrogen 12 mg/dL (7-17); Carbon Dioxide 31 mmol/L (22-32); Chloride 103 mmol/L (98-107); Estimated Glomerular Filt Rate > 60 mL/min (>60); Globulin 3.6 g/dL (1.7-4.1); HEMOLYSIS 47 (0-50); Potassium 4.3 mmol/L (3.4-5.1); Sodium 139 mmol/L (137-145); Total Protein 7.6 g/dL (6.3-8.2)
[2023-07-13 19:43] LABS: Alanine Aminotransferase 29 IU/L (<35); Calcium 9.7 mg/dL (8.4-10.2); Glucose 122 mg/dL (70-100); Lipase 95 U/L (23-300)
== END 2023-07-13 20:55 | disposition home or self-care (01) ==
PROVIDERS: Emergency Provider Emergency Medicine; PCP Physician Assistant Medical
DX: R10.9 Unspecified abdominal pain (principal)
CPT/HCPCS: 36415; 76830; 76856; 80053; 81003; 81025; 83690; 85025; 99284

== ENCOUNTER 2024-09-29 17:30 | Emergency (ER) | payer OTHER, SELFPAY ==
[2019-03-22 16:58] VITALS: BMI 48.5
[2024-09-29] VITALS (29 sets, daily range): BP systolic 127–209; BP diastolic 63–98; PULSE 58–72; RESP 7–31; TEMP 36.5; O2SAT 91–100; BMI 53.5
--- NOTE | 2024-09-29 17:59 | DI.RAD.S_ITS ---
PROCEDURE: XR TIBIA FUBULA RT 2V INDICATIONS: proximal knee pain/deformed R ankle TECHNIQUE: 2 views of the tibia and fibula were acquired. COMPARISON: None. FINDINGS: Bones: Comminuted fracture dislocation involving the distal tibia and fibula with bilateral subluxation of the talus over the tibia. Complete ankle mortise disruption. Soft tissues: No suspicious soft tissue calcifications or masses. IMPRESSION: Comminuted fracture dislocation distal tibia and fibula with ankle mortise disruption Approved by: Reji Horowitz M.D. on 09/29/2024 at 18:24
--- NOTE | 2024-09-29 17:59 | DI.RAD.S_ITS ---
PROCEDURE: XR ANKLE RT MIN 3V INDICATIONS: proximal knee pain/deformed R ankle TECHNIQUE: 3 views of the ankle were acquired. COMPARISON: None. FINDINGS: Bones: Distal tibial and fibular fracture dislocation with lateral subluxation of the talus in complete ankle mortise disruption Soft tissues: No tibiotalar joint effusion. Achilles tendon appears normal. IMPRESSION: Distal tibial and fibular fracture dislocation with posterior lateral subluxation of the talus Approved by: Reji Horowitz M.D. on 09/29/2024 at 18:25
[2024-09-29] MEDS: HYDROMORPHONE 0.5 MG INJ IV (18:26)
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
[2024-09-29] MEDS: KETAMINE 500 MG/5 ML INJ 150 MG IV (20:46)
--- NOTE | 2024-09-29 20:54 | DI.RAD.S_ITS ---
PROCEDURE: XR ANKLE RT MIN 3V INDICATIONS: post reduction TECHNIQUE: 3 views of the ankle were acquired. COMPARISON: Located Within [facility], CR, XR TIBIA FIBULA RT 2V, 09/29/2024, 18:06. Located Within [facility], CR, XR ANKLE RT MIN 3V, 09/29/2024, 18:06. FINDINGS: Bones: On this post casting view, there is improved anatomic alignment of the distal fibular fracture and the medial malleolar fracture and the posterior tibial fracture. Soft tissues: Soft tissue swelling is seen. The overlying casting material limits evaluation of fine detail. IMPRESSION: Improved anatomic alignment of the trimalleolar fracture on this post casting view. Dictated by: Yariel Buckner M.D. on 09/29/2024 at 20:30 Approved by: Yariel Buckner M.D. on 09/29/2024 at 20:31
[2024-09-29] MEDS: OXYCODONE/APAP 5/325 PREPACK 1 BOTTLE MISC (22:36)
== END 2024-09-29 22:40 | disposition home or self-care (01) ==
PROVIDERS: Emergency Provider Emergency Medicine; PCP Physician Assistant Medical
DX: S82.841A Displaced bimalleolar fracture of right lower leg, initial encounter for closed fracture (principal); V19.9XXA Pedal cyclist (driver) (passenger) injured in unspecified traffic accident, initial encounter
CPT/HCPCS: 27810; 73590; 73610; 96374; 99152; 99153; 99284; J1171